=== PATIENT | male | born 1955 | race Caucasian/White ===

== ENCOUNTER 2022-09-10 11:18 | Outpatient (REF) | payer OTHER, SELFPAY ==
[2022-09-10 13:55] LABS: MANUAL DIFF FLAG NO
[2022-09-10 14:07] LABS: Basophils Percent Auto 0.5 % (0-2); Eosinophils Absolute Auto 0.2 X10*3/uL (0.0-0.4); Eosinophils Percent Auto 1.9 % (0-4); Hemoglobin 16.3 g/dl (14.0-18.0); Imm Gran Abs Auto 0.08 X10*3/uL (0.00-0.03); Imm Gran Pct Auto 0.9 % (0.0-0.4); Lymphocytes Absolute Auto 1.7 X10*3/uL (1.2-4.9); Lymphocytes Percent Auto 19.7 % (20-40); Mean Corpuscular Hemoglobin 27.7 pg (27.0-33.0); Mean Corpuscular Volume 81.5 fL (80.0-98.0); Mean Platelet Volume 9.7 fL (9.4-12.4); Monocytes Absolute Auto 0.6 X10*3/uL (0.1-1.2); Monocytes Percent Auto 7.4 % (2-11); Neutrophils Absolute Auto 5.9 x10*3/uL (2.0-8.3); Neutrophils Percent Auto 69.6 % (45-73); Platelet Count 235 X10*3/uL (160-400); Red Blood Count 5.89 X10*6/uL (4.60-5.80); Red Cell Distribution Width 12.9 % (11.0-16.0); White Blood Count 8.4 X10*3/uL (4.8-10.8)
[2022-09-10 14:10] LABS: Anion Gap 14 (12-20); Blood Urea Nitrogen 13 mg/dL (9-16); Calcium 9.7 mg/dL (8.4-10.2); Carbon Dioxide 26 mmol/L (22-29); Chloride 104 mmol/L (96-108); Estimated Glomerular Filt Rate > 60; Glucose Fasting 110 mg/dL (60-99); Potassium 4.3 mmol/L (3.3-5.1); Sodium 140 mmol/L (135-145)
== END 2022-09-10 11:19 | disposition home or self-care (01) ==
LOC: HO.HMGCLDS 11:18
PROVIDERS: Visit Provider Nurse Practitioner Family
DX: R42 Dizziness and giddiness (principal)
CPT/HCPCS: 36415; 80048; 85025

== ENCOUNTER 2022-12-03 08:29 | Outpatient (REF) | payer OTHER, SELFPAY ==
[2022-12-03 11:27] LABS: MANUAL DIFF FLAG NO
[2022-12-03 12:14] LABS: Basophils Absolute Auto 0.1 X10*3/uL (0.0-0.2); Basophils Percent Auto 0.7 % (0-2); Eosinophils Absolute Auto 0.4 X10*3/uL (0.0-0.4); Eosinophils Percent Auto 4.1 % (0-4); Hematocrit 47.4 % (42.0-52.0); Hemoglobin 16.3 g/dl (14.0-18.0); Imm Gran Abs Auto 0.05 X10*3/uL (0.00-0.03); Imm Gran Pct Auto 0.6 % (0.0-0.4); Lymphocytes Percent Auto 23.4 % (20-40); Mean Corpuscular HGB Conc 34.4 g/dl (31.0-36.0); Mean Corpuscular Hemoglobin 28.6 pg (27.0-33.0); Mean Corpuscular Volume 83.3 fL (80.0-98.0); Monocytes Absolute Auto 0.7 X10*3/uL (0.1-1.2); Monocytes Percent Auto 8.3 % (2-11); Neutrophils Absolute Auto 5.5 x10*3/uL (2.0-8.3); Neutrophils Percent Auto 62.9 % (45-73); Platelet Count 218 X10*3/uL (160-400); Red Blood Count 5.69 X10*6/uL (4.60-5.80); Red Cell Distribution Width 12.8 % (11.0-16.0); White Blood Count 8.7 X10*3/uL (4.8-10.8)
[2022-12-03 12:18] LABS: Alanine Aminotransferase 26 U/L (0-40); Albumin Level 4.5 g/dL (3.5-5.0); Alkaline Phosphatase 68 U/L (39-117); Anion Gap 12 (12-20); Aspartate Amino Transferase 20 U/L (5-37); Blood Urea Nitrogen 17 mg/dL (9-16); Calcium 9.5 mg/dL (8.4-10.2); Carbon Dioxide 25 mmol/L (22-29); Chloride 106 mmol/L (96-108); Estimated Glomerular Filt Rate > 60; Glucose Fasting 122 mg/dL (60-99); Sodium 139 mmol/L (135-145); Total Protein 7.5 g/dL (6.5-8.0)
[2022-12-03 12:29] LABS: Lipase 403 U/L (8-78)
[2022-12-03 12:36] LABS: TSH reflex Free T4 2.67 uIU/mL (0.32-4.0)
== END 2022-12-03 08:30 | disposition home or self-care (01) ==
LOC: HO.HMGCLDS 08:29
PROVIDERS: Visit Provider Internal Medicine
DX: Z00.01 Encounter for general adult medical examination with abnormal findings (principal); E66.09 Other obesity due to excess calories; K43.9 Ventral hernia without obstruction or gangrene; L28.2 Other prurigo; R03.0 Elevated blood-pressure reading, without diagnosis of hypertension
CPT/HCPCS: 36415; 80053; 83690; 84443; 85025

== ENCOUNTER 2022-12-15 13:43 | Outpatient (REF) | payer OTHER, SELFPAY ==
--- NOTE | ~2022-12-15 | US_ITS ---
EXAMINATION: US ABDOMEN COMPLETE CLINICAL INFORMATION: Abnormal levels of other serum enzymes. COMPARISON: None. TECHNIQUE: Real-time imaging of the abdominal viscera. FINDINGS: PANCREAS: Normal. ABDOMINAL AORTA: The proximal, mid, and distal segments are normal in caliber. INFERIOR VENA CAVA: Visualized portions are normal. LIVER: The liver is normal in size. The liver contour is normal. There is increased liver echogenicity. No focal hepatic lesion. There is no intrahepatic biliary duct dilatation seen. There is mild pericholecystic fluid collection. GALLBLADDER: The gallbladder is physiologically distended. Multiple mobile gallstones are present. No evidence of gallbladder wall thickening. COMMON BILE DUCT: Normal in caliber measuring 0.3 cm in diameter. RIGHT KIDNEY: Normal. No hydronephrosis. No renal calculi or focal parenchymal lesions. The kidney measures 10.2 cm in maximum dimension. LEFT KIDNEY: Normal. No hydronephrosis. No renal calculi or focal parenchymal lesions. The kidney measures 12.3 cm in maximum dimension. SPLEEN: Normal. The spleen measures 10.6 cm in maximum dimension. FREE FLUID: None. US/US abdomen complete IMPRESSION: 1. Cholelithiasis without wall thickening. There is mild pericholecystic fluid collection. 2. The rest of the abdominal ultrasound is unremarkable.
== END 2022-12-15 13:44 | disposition home or self-care (01) ==
LOC: HO.HMGCX 13:43
PROVIDERS: PCP Internal Medicine; Visit Provider Internal Medicine
DX: R74.8 Abnormal levels of other serum enzymes (principal)
CPT/HCPCS: 76700

== ENCOUNTER 2022-12-31 13:41 | Outpatient (REF) | payer MEDICARE, MEDICAID, SELFPAY ==
[2022-12-31 14:42] LABS: MANUAL DIFF FLAG NO
[2022-12-31 15:57] LABS: Basophils Absolute Auto 0.1 X10*3/uL (0.0-0.2); Basophils Percent Auto 0.6 % (0-2); Eosinophils Absolute Auto 0.2 X10*3/uL (0.0-0.4); Eosinophils Percent Auto 2.1 % (0-4); Hematocrit 46.1 % (42.0-52.0); Hemoglobin 15.9 g/dl (14.0-18.0); Imm Gran Abs Auto 0.03 X10*3/uL (0.00-0.03); Imm Gran Pct Auto 0.4 % (0.0-0.4); Lymphocytes Absolute Auto 1.8 X10*3/uL (1.2-4.9); Lymphocytes Percent Auto 20.9 % (20-40); Mean Corpuscular HGB Conc 34.5 g/dl (31.0-36.0); Mean Corpuscular Hemoglobin 28.5 pg (27.0-33.0); Mean Corpuscular Volume 82.6 fL (80.0-98.0); Mean Platelet Volume 9.7 fL (9.4-12.4); Monocytes Absolute Auto 0.7 X10*3/uL (0.1-1.2); Monocytes Percent Auto 7.6 % (2-11); Neutrophils Absolute Auto 5.8 x10*3/uL (2.0-8.3); Neutrophils Percent Auto 68.4 % (45-73); Platelet Count 216 X10*3/uL (160-400); Red Blood Count 5.58 X10*6/uL (4.60-5.80); Red Cell Distribution Width 12.8 % (11.0-16.0); White Blood Count 8.5 X10*3/uL (4.8-10.8)
[2022-12-31 16:07] LABS: Estimated Average Glucose 120 mg/dL; Hemoglobin A1c % 5.8 %
[2022-12-31 16:26] LABS: Alanine Aminotransferase 25 U/L (0-40); Albumin Level 4.7 g/dL (3.5-5.0); Alkaline Phosphatase 72 U/L (39-117); Amylase 140 U/L (28-100); Anion Gap 17 (12-20); Aspartate Amino Transferase 25 U/L (5-37); Bilirubin Total 0.9 mg/dL (0.0-1.0); Blood Urea Nitrogen 17 mg/dL (9-16); Calcium 9.5 mg/dL (8.4-10.2); Carbon Dioxide 25 mmol/L (22-29); Chloride 105 mmol/L (96-108); Estimated Glomerular Filt Rate > 60; Glucose Random 102 mg/dL (60-115); Lipase 85 U/L (8-78); Potassium 4.5 mmol/L (3.3-5.1); Sodium 142 mmol/L (135-145); Total Protein 7.5 g/dL (6.5-8.0)
== END 2022-12-31 13:42 | disposition home or self-care (01) ==
LOC: HO.LAB 13:41
PROVIDERS: PCP Internal Medicine; Visit Provider Surgery
DX: E66.09 Other obesity due to excess calories (principal); M62.08 Separation of muscle (nontraumatic), other site; R03.0 Elevated blood-pressure reading, without diagnosis of hypertension; R73.09 Other abnormal glucose; R74.8 Abnormal levels of other serum enzymes; K80.20 Calculus of gallbladder without cholecystitis without obstruction
CPT/HCPCS: 36415; 80053; 82150; 83036; 83690; 84134; 85025; 99202

== ENCOUNTER 2023-01-06 09:21 | Outpatient (REF) | payer MEDICARE, MEDICAID, SELFPAY ==
--- NOTE | ~2023-01-06 | CT_ITS ---
EXAMINATION: CT ABDOMEN AND PELVIS WITH CONTRAST CLINICAL INFORMATION: Abnormal levels of serum enzymes COMPARISON: Ultrasound abdomen complete 12/15/2022 TECHNIQUE: Multidetector volumetric images were obtained from the superior aspect of the liver through the pubic symphysis following administration 85 mL of Omnipaque 350 intravenous contrast. Sagittal and coronal reformatted images were obtained on the technologist's workstation. Oral contrast: No This CT examination was performed using dose optimization techniques as appropriate, variously including the following: *Automated exposure control *Adjustment of mA and/or kV according to patient size (this includes techniques or standardized protocols for targeted exams where dose is matched to indication/reason for exam; i.e. extremities or head) *Use of iterative reconstruction technique DLP: 413 mGy-cm FINDINGS: LUNG BASES: The visualized lung bases are unremarkable. LIVER, GALLBLADDER, AND BILIARY TREE: The liver is normal in size and shape. There is mild attenuation liver without focal attenuation along the ligament teres left hepatic lobe on axial image 17/3. No biliary ductal dilatation is present. There are gallstones without wall thickening or pericholecystic fluid collection. CBD is nondilated. PANCREAS: Unremarkable. SPLEEN: Unremarkable. ADRENAL GLANDS: Unremarkable. KIDNEYS AND URETERS: The kidneys are normal in size, shape, and attenuation. No hydronephrosis, hydroureter, or calculi seen. No perinephric stranding. BLADDER: Unremarkable. GASTROINTESTINAL TRACT: There is scattered stool and gas seen in the colon without distention. The small bowel loops are normal caliber. Appendix is not visualized. No free air or free fluid seen. There is no inflammatory process ABDOMINAL WALL: No significant hernia is appreciated. LYMPH NODES: Normal. VASCULAR: Unremarkable. PELVIC VISCERA: Unremarkable. OSSEOUS STRUCTURES: Mild degenerative disc changes with vacuum disc phenomena L5-S1 disc levels. There is mild ventral spondylosis lower lumbar spine. No aggressive lytic or sclerotic process seen. CT/CT abdomen pelvis w IV con IMPRESSION: 1. No acute intra-abdominal process seen. 2. Cholelithiasis without wall thickening. 3. Mild attenuation of liver similar to ultrasound findings. Fleischner guidelines were followed.
[2023-01-06] MEDS: iohexoL 350 MG/ML 100 ML INFUS..BTL 85 ML IV (11:40)
== END 2023-01-06 09:22 | disposition home or self-care (01) ==
LOC: HO.CT 09:21
PROVIDERS: PCP Internal Medicine; Visit Provider Surgery
DX: R74.8 Abnormal levels of other serum enzymes (principal)
CPT/HCPCS: 74177; Q9967

== ENCOUNTER 2023-01-13 12:47 | Outpatient (REF) | payer MEDICARE, MEDICAID, SELFPAY ==
[2023-01-13 15:31] LABS: Amylase 133 U/L (28-100); Lipase 77 U/L (8-78)
== END 2023-01-13 12:48 | disposition home or self-care (01) ==
LOC: HO.LAB 12:47
PROVIDERS: PCP Internal Medicine; Visit Provider Surgery
DX: K80.20 Calculus of gallbladder without cholecystitis without obstruction (principal); K85.90 Acute pancreatitis without necrosis or infection, unspecified; R74.8 Abnormal levels of other serum enzymes; M62.08 Separation of muscle (nontraumatic), other site; R03.0 Elevated blood-pressure reading, without diagnosis of hypertension; E66.09 Other obesity due to excess calories; I10 Essential (primary) hypertension; Z79.899 Other long term (current) drug therapy
CPT/HCPCS: 36415; 82150; 83690; 99212

== ENCOUNTER 2023-02-04 10:15 | Outpatient (REF) | payer MEDICARE, MEDICAID, SELFPAY ==
--- NOTE | ~2023-02-04 | MR_ITS ---
EXAMINATION: MR ABDOMEN WITHOUT CONTRAST CLINICAL INFORMATION: Cholelithiasis. Persistent elevation of amylase/lipase. No pain. COMPARISON: CT abdomen/pelvis 01/06/2023. TECHNIQUE: MR abdomen is performed without gadolinium contrast. 3-D MRCP images were obtained. FINDINGS: LUNG BASES: The visualized lung bases are unremarkable. LIVER, GALLBLADDER, AND BILIARY TREE: There is signal loss in the [id number] dual-echo images suggesting the presence of hepatic steatosis. The noncontrast liver is otherwise normal in size and shape without discrete focal lesion. Layering stones in the gallbladder neck. No evidence of gallbladder wall thickening. No evidence of associated pericholecystic fat stranding or free fluid. No biliary ductal dilatation. PANCREAS: Limited noncontrast examination, unremarkable. SPLEEN: Limited noncontrast examination, unremarkable. ADRENAL GLANDS: No adrenal nodule or mass. KIDNEYS AND URETERS: Limited noncontrast examination. No hydronephrosis. No focal lesion. No perinephric fat stranding. GASTROINTESTINAL TRACT: Included portions of the bowel are within normal limits. ABDOMINAL WALL: No significant hernia is appreciated. LYMPH NODES: No lymphadenopathy. VASCULAR: Limited noncontrast examination. Abdominal aorta is normal in caliber. OSSEOUS STRUCTURES: Marrow signal normal. MR/MR MRCP IMPRESSION: 1. Cholelithiasis without evidence of acute cholecystitis. 2. No significant peripancreatic free fluid or fat stranding. 3. Hepatic steatosis.
== END 2023-02-04 10:16 | disposition home or self-care (01) ==
LOC: HO.MRI 10:15
PROVIDERS: PCP Internal Medicine; Visit Provider Surgery
DX: K80.20 Calculus of gallbladder without cholecystitis without obstruction (principal); R74.8 Abnormal levels of other serum enzymes
CPT/HCPCS: 74181

== ENCOUNTER → 2023-02-13 11:18 | Outpatient (BNVA) | payer MEDICARE, MEDICAID, SELFPAY | PROVIDERS: PCP Internal Medicine; Visit Provider Surgery | DX: K85.90 Acute pancreatitis without necrosis or infection, unspecified (principal); K80.20 Calculus of gallbladder without cholecystitis without obstruction; K58.9 Irritable bowel syndrome, unspecified; K40.90 Unilateral inguinal hernia, without obstruction or gangrene, not specified as recurrent; I10 Essential (primary) hypertension; E66.09 Other obesity due to excess calories; Z68.29 Body mass index [BMI] 29.0-29.9, adult | CPT/HCPCS: 99212 ==

== ENCOUNTER → 2023-04-01 13:23 | Outpatient (BNVA) | payer MEDICARE, MEDICAID, SELFPAY | PROVIDERS: PCP Internal Medicine; Visit Provider Internal Medicine | DX: R74.8 Abnormal levels of other serum enzymes (principal) | CPT/HCPCS: 99202 ==

== ENCOUNTER → 2023-04-17 11:18 | Outpatient (BNVA) | payer MEDICARE, MEDICAID, SELFPAY | PROVIDERS: PCP Internal Medicine; Visit Provider Surgery | DX: K80.20 Calculus of gallbladder without cholecystitis without obstruction (principal); K85.90 Acute pancreatitis without necrosis or infection, unspecified; K58.9 Irritable bowel syndrome, unspecified; R74.8 Abnormal levels of other serum enzymes; I10 Essential (primary) hypertension | CPT/HCPCS: 99212 ==

== ENCOUNTER 2023-05-12 08:19 | Outpatient (AMB) | payer MEDICARE, MEDICAID, SELFPAY ==
[2023-05-12 08:25] VITALS: BP 148/80; PULSE 98; O2SAT 56; BMI 29.8
--- NOTE | 2023-05-12 08:25 | A.OFFPC_ITS ---
Vital Signs 05/12/23 08:25 Height 5 ft 5 in Weight 179 lb 4 oz BMI 29.8 BP 148/80 H Blood Pressure Location Rt brachial Position Sitting Pulse 98 Pulse Source Pulse Oximeter Pulse Oximetry (%) 56 L Oxygen Delivery Method Room Air Intake Visit Reasons: Blood Pressure Check ~ Allergies Penicillins [PENICILLINS] Allergy (Unknown, Verified 05/12/23 08:25) Hives Medication List - Last Reconciled 05/12/23 by More Laureano MD cetirizine (Zyrtec) 10 mg PO DAILY PRN hydrochlorothiazide 25 mg PO QAM 90 days Tobacco use date assessed: 05/12/23 Fall risk assessment: No Falls in past year Last assessed Fall Risk: 05/12/23 Dental Screening Dental Screen Date: 05/12/23 Did you have a dental visit in the last 12 months?: No Did you have a dental problem in the last 6 months where you did not have access to dental care?: No Was dental information given to patient?: No HPI Blood Pressure Check ~ HPI Details Patient is 67-year-old gentleman who was last seen January of this year and then did not come in for follow-up on his blood pressure He was started on hydrochlorothiazide 12.5 mg which was then increase to 25 mg. He came in today for blood pressure check he is also due for labs Blood pressure is 148/80 patient says that he had 4 cups of coffee before he came in Once in awhile he check his blood pressure at home and it runs around 130 systolic. I have advised patient to start monitoring blood pressure more frequently and bring the log along when he comes back for follow-up in 3 months Labs to be done today. [facility] Medical History Ventral hernia Surgical History H/O right inguinal hernia repair History of appendectomy [place] teeth extracted Social History Housing: House Patient Tobacco Use Status: Former Tobacco user e-Cigarette/Vaping Use: Never Used service: No Current occupational status: employed and retired Cognitive needs: No Hearing needs: No Vision needs: Yes Questionnaire Thrive Questionnaire Date Thrive assessed: 12/02/22 AUDIT C Alcohol Use Questionnaire (AUDIT-C) 1. How often do you have a drink containing alcohol?: Never 3. How often do you have six or more drinks on one occasion?: Never Total Score: 0 Score Reviewed/Action Taken: Yes MIRNA-7 AMB Questionnaire MIRNA-7 Date MIRNA - 7 assessed: 12/02/22 Source: Developed by Drs. Hank Jasmine, Alyson Choi, Tacho Bergman and colleagues, with an educational ebonie from [employer]. Review of Systems Const Denies chills and Denies fever(s) ENT Denies epistaxis and Denies nasal discharge Card Denies chest pain Resp Denies chest congestion, Denies cough and Denies hemoptysis GI Denies diarrhea and Denies nausea Skin/Breast Denies rash Neuro Reports no additional complaints Psych Reports no additional complaints Endo Reports no additional complaints Physical exam (Primary Care) Vital Signs: Last Vital Signs Pulse 98 05/12/23 08:25 BP 148/80 H 05/12/23 08:25 Pulse Ox 56 L 05/12/23 08:25 Oxygen Delivery Method Room Air 05/12/23 08:25 BMI result Body Mass Index 29.8 Tobacco/Smoking Status: Tobacco use Status Tobacco use date assessed 05/12/23 05/12/23 08:28 Patient Tobacco Use Status Former Tobacco user 05/12/23 08:28 e-Cigarette/Vaping Use Never Used 05/12/23 08:28 Thrive Assessment: Date of Thrive Assessment Date Thrive assessed 12/02/22 05/12/23 08:28 Const General: cooperative, comfortable and no acute distress Orientation/consciousness: patient oriented x3 HENRI Head: Yes normocephalic Eyes General: appearance normal, both eyes and all related structures Neck Neck: Yes supple Resp Effort & Inspection: normal respiratory effort, no cough and no stridor Cardio Rhythm: regular rhythm Heart sounds: S1 normal heart sound present and S2 normal heart sound present Skin General skin exam: turgor normal Neuro General: patient oriented x3, tone normal and moves all extremities Extrem Right lower extremity: no edema Left lower extremity: no edema Assessment and Plan Assessment & Plan (1) Hypertension, essential: Code(s): I10 - Essential (primary) hypertension Plan Patient is 67-year-old gentleman who was last seen January of this year and then did not come in for follow-up on his blood pressure He was started on hydrochlorothiazide 12.5 mg which was then increase to 25 mg. He came in today for blood pressure check he is also due for labs Blood pressure is 148/80 patient says that he had 4 cups of coffee before he came in Once in awhile he check his blood pressure at home and it runs around 130 systolic. I have advised patient to start monitoring blood pressure more frequently and bring the log along when he comes back for follow-up in 3 months Labs to be done today. Orders: Orders Basic Metabolic Panel Today I10 - Essential (primary) hypertension LDL Cholesterol Direct Today I10 - Essential (primary) hypertension Coding Level of Care Code Est Pt Level 3 (21753) Diagnoses Hypertension, essential I10
== END 2023-05-12 09:44 | disposition home or self-care (01) ==
PROVIDERS: PCP Internal Medicine; Visit Provider Internal Medicine
DX: I10 Essential (primary) hypertension (principal)
CPT/HCPCS: 99213

== ENCOUNTER 2023-05-12 08:39 | Outpatient (REF) | payer MEDICARE, MEDICAID, SELFPAY ==
[2023-05-12 12:33] LABS: Amylase 206 U/L (28-100); Anion Gap 11 (12-20); Blood Urea Nitrogen 13 mg/dL (9-16); Calcium 9.5 mg/dL (8.4-10.2); Carbon Dioxide 27 mmol/L (22-29); Chloride 104 mmol/L (96-108); Estimated Glomerular Filt Rate > 60; Glucose Random 122 mg/dL (60-115); Lipase 253 U/L (8-78); Potassium 3.5 mmol/L (3.3-5.1); Sodium 138 mmol/L (135-145)
[2023-05-13 21:08] LABS: LDL Cholesterol Direct 95 mg/dL (<100)
[2023-05-14 16:54] LABS: Immunoglobulin A 383 mg/dL (70-320)
[2023-05-14 20:09] LABS: Transglutaminase IgA <1.0 U/mL
== END 2023-05-12 08:40 | disposition home or self-care (01) ==
LOC: HO.HMGCLDS 08:39
PROVIDERS: Internal Medicine; PCP Internal Medicine; Visit Provider Internal Medicine
DX: K58.9 Irritable bowel syndrome, unspecified (principal); R74.8 Abnormal levels of other serum enzymes; I10 Essential (primary) hypertension
CPT/HCPCS: 36415; 80048; 82150; 82784; 83690; 83721; 86364

== ENCOUNTER 2023-05-25 08:04 | Outpatient (REF) | payer MEDICARE, MEDICAID, SELFPAY ==
--- NOTE | ~2023-05-25 | MR_ITS ---
EXAMINATION: MR ABDOMEN WITHOUT AND WITH CONTRAST CLINICAL INFORMATION: Follow up abnormal blood work, unspecified. Cholelithiasis. COMPARISON: MRCP 02/04/2023. CT abdomen/pelvis 01/06/2023. TECHNIQUE: MR abdomen was performed without and with use of 8 mL intravenous Gadavist gadolinium contrast. Postcontrast images are performed in multiphase dynamic sequences. Imaging was performed in 3 planes. 3-D MRCP images were obtained. FINDINGS: LUNG BASES: The visualized lung bases are unremarkable. LIVER, GALLBLADDER, AND BILIARY TREE: There is signal loss in the [id number] dual-echo images suggesting the presence of hepatic steatosis. Otherwise, the liver is normal in shape and signal without focal lesion. Redemonstration of cholelithiasis. No evidence of gallbladder wall thickening or pericholecystic fat stranding/free fluid. No biliary ductal dilatation. PANCREAS: Unremarkable. SPLEEN: Normal. ADRENAL GLANDS: Normal. KIDNEYS AND URETERS: The kidneys are normal in size, shape, and enhance symmetrically. No hydronephrosis. No perinephric stranding. GASTROINTESTINAL TRACT: No bowel obstruction. No ascites or fluid collection. ABDOMINAL WALL: No significant hernia is appreciated. LYMPH NODES: Stable periportal lymphadenopathy compared to 02/04/2023 and 01/06/2023. Scattered mildly prominent mesenteric lymph nodes are also unchanged. VASCULAR: Normal caliber abdominal aorta. Main portal vein and SMV are patent. OSSEOUS STRUCTURES: Degenerative changes of the spine. Stable mild endplate concavities/compression deformities at L4 and L5. MR/MR abdomen wo/w con IMPRESSION: 1. Cholelithiasis without evidence of acute cholecystitis or biliary ductal dilatation. 2. Hepatic steatosis. 3. Stable periportal lymphadenopathy.
== END 2023-05-25 08:05 | disposition home or self-care (01) ==
LOC: HO.MRI 08:04
PROVIDERS: PCP Internal Medicine; Visit Provider Internal Medicine
DX: K86.2 Cyst of pancreas (principal)
CPT/HCPCS: 74183; A9585

== ENCOUNTER 2023-06-09 11:20 | Outpatient (AMB) | payer MEDICARE, SELFPAY ==
--- NOTE | 2023-06-09 11:26 | MHC.OFFVIS ---
Intake Vital Signs 06/09/23 11:30 Height 5 ft 5 in Weight 175 lb 8 oz BMI 29.2 BP 191/84 H Blood Pressure Location Lt brachial Position Sitting Pulse 74 Intake Visit Reasons: MRI results, following cholelithiasis Intake Note: Patient is seen in office for MRCP results, following cholelithiasis. 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 He continues to note irritable bowel pain which she has had his entire life in his epigastrium. He continues to deny any pains comparable to pancreatitis or biliary colic. He does note that he was concerned about his diet and weight gain and has implemented dietary changes and is currently losing weight. Parenthetically, he notes less gas and irritable bowel symptoms since going on to a low-fat low-carbohydrate diet. The patient notes that he feels better since losing some weight and continues to deny any symptoms of pancreatitis or biliary colic. 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 He continues to note family stressors and that his mother's dementia has taken a turn for the worse and she is becoming aggressive and violent. He is working with his family to address this at this time and the noted that he is not having any abdominal complaints so he wants to table any ideas regarding surgery. I summarized the fact that the patient seems to have had a random lipase drawn due to epigastric complaints which was elevated at 400. At last visit, repeat labs showed elevated but normalizing amylase and lipase, a normal hemoglobin A1c at 5.8 and no other significant lab abnormalities including liver function tests. We reviewed 05/12/2023 amylase and lipase which are both elevated at around just over 200. Patient reports his hypertension medication was increased and that he needs a follow-up in the next month with his PCP because his blood pressure has been exceptionally labile. [facility] Medical History Ventral hernia Surgical History H/O right inguinal hernia repair History of appendectomy [place] teeth extracted Social History Housing: House Patient Tobacco Use Status: Former Tobacco user e-Cigarette/Vaping Use: Never Used service: No Current occupational status: employed and retired Cognitive needs: No Hearing needs: No Vision needs: Yes Review of Systems Const All systems reviewed & are unremarkable except as noted in HPI and below Reports as per HPI Physical Exam On exam, the patient is anicteric He is in no acute respiratory distress His abdomen is soft & NT. No discomfort is noted. He has no rebound, rigidity, guarding or discomfort Results Reviewed Results Reviewed: Labs from 01/13/2023 show his amylase down to 77, however his his amylase elevated at 140 MRCP from 02/04/2023 shows non alcoholic fatty liver disease but no evidence of choledocholithiasis, previously acknowledged cholelithiasis is noted MRCP 05/25/23 continues to show fatty liver, gallstones but no evidence of choledocholithiasis CT of the abdomen and pelvis from 01/06/2023 images and report are reviewed. Calcified gallstones are noted but there is no intrahepatic ductal dilation or evidence of pancreatic mass. Labs dated 12/31/2022 A persistent elevation of his lipase down from 403 to 85 is noted and the patient's amylase is still elevated at 140. White blood cell count is normal at 8.5 with a normal differential; hemoglobin is normal at 15.9 with normal indices; platelet count 216 K BUN 17, creatinine 0.95 Hemoglobin A1c 5.8 LFTs are all normal Labs 05/12/23 Amylase is again elevated at 206, lipase elevated at 253 Abdominal ultrasound dated 12/15/22 is reviewed which showed cholelithiasis and some fluid around the pancreatic head Patient's blood glucose is mildly elevated Patient's lipase was elevated at 403 White blood cell count was normal 8.7, hemoglobin 16.3, platelet count 218 K Assessment & Plan Assessment & Plan (1) Elevated pancreatic enzyme: Code(s): R74.8 - Abnormal levels of other serum enzymes (2) Cholelithiasis: Code(s): K80.20 - Calculus of gallbladder without cholecystitis without obstruction (3) Pancreatitis: Code(s): K85.90 - Acute pancreatitis without necrosis or infection, unspecified (4) Hypertension, essential: Code(s): I10 - Essential (primary) hypertension (5) Irritable bowel syndrome: Code(s): K58.9 - Irritable bowel syndrome without diarrhea (6) Elevated lipase: Code(s): R74.8 - Abnormal levels of other serum enzymes Plan Using a teaching slitter cut off operator, I again reviewed that the patient is most likely spitting gallstones or sludge in having low-grade episodes of pancreatitis. We did discuss the potential issue of severe pancreatitis that could require hospitalization or even ICU stay. I again recommended a laparoscopic cholecystectomy that could possibly be open but the patient noted that he is not interested in surgery and also notes that his aunt has had digestive issues which she explained is chronic diarrhea that is felt to be secondary to her cholecystectomy. We discussed dietary modification to minimize this risk and I also explained that his aunt could have other reasons for diarrhea like microscopic colitis at her age but regardless the patient does not want to proceed with surgery at this time. The importance of following up with me later this year after he sees GI, Dr. Hicks was apparently understood. The potential for malignancy was discussed and apparently understood. The patient noted that his blood pressure remains labile and he has a follow-up with his PCP to address this as well as ongoing issues with his mother. The patient is free to contact if he changes his mind or if he starts having symptoms and wants to schedule surgery I am happy to see him back. Patient stated he will likely call for a follow-up later in the year but could not schedule 1 at this time. Coding Level of Care Code Est Pt Level 4 (47613) Diagnoses Elevated pancreatic enzyme R74.8 Cholelithiasis K80.20 Pancreatitis K85.90 Hypertension, essential I10 Irritable bowel syndrome K58.9 Elevated lipase R74.8
[2023-06-09 11:30] VITALS: BP 191/84; PULSE 74; BMI 29.2
== END 2023-06-09 11:57 | disposition home or self-care (01) ==
PROVIDERS: PCP Internal Medicine; Visit Provider Surgery
DX: R74.8 Abnormal levels of other serum enzymes (principal); K80.20 Calculus of gallbladder without cholecystitis without obstruction; K85.90 Acute pancreatitis without necrosis or infection, unspecified; I10 Essential (primary) hypertension; K58.9 Irritable bowel syndrome, unspecified
CPT/HCPCS: 99214

== ENCOUNTER → 2023-06-09 11:20 | Outpatient (BNVA) | payer MEDICARE, SELFPAY | PROVIDERS: PCP Internal Medicine; Visit Provider Surgery | DX: K80.20 Calculus of gallbladder without cholecystitis without obstruction (principal); K85.90 Acute pancreatitis without necrosis or infection, unspecified; K58.9 Irritable bowel syndrome, unspecified; R74.8 Abnormal levels of other serum enzymes; I10 Essential (primary) hypertension | CPT/HCPCS: 99212 ==

== ENCOUNTER 2023-08-14 11:22 | Outpatient (AMB) | payer MEDICARE, SELFPAY ==
[2023-08-14 11:23] VITALS: BP 160/74; PULSE 76; O2SAT 98; BMI 29.1
--- NOTE | 2023-08-14 11:23 | MHC.PC.OV ---
Vital Signs 08/14/23 11:23 Height 5 ft 5 in Weight 175 lb BMI 29.1 BP 160/74 H Blood Pressure Location Rt brachial Position Sitting Pulse 76 Pulse Source Pulse Oximeter Pulse Oximetry (%) 98 Oxygen Delivery Method Room Air Intake Visit Reasons: 3 Month follow up on BP Allergies Penicillins [PENICILLINS] Allergy (Unknown, Verified 08/14/23 11:24) Hives Medication List - Last Reconciled 08/14/23 by More Laureano MD cetirizine (Zyrtec) 10 mg PO DAILY PRN hydrochlorothiazide 25 mg PO QAM 90 days Tobacco use date assessed: 08/14/23 Fall risk assessment: No Falls in past year Last assessed Fall Risk: 08/14/23 Dental Screening Dental Screen Date: 08/14/23 Did you have a dental visit in the last 12 months?: No Did you have a dental problem in the last 6 months where you did not have access to dental care?: No Was dental information given to patient?: Patient has dentist HPI 3 Month follow up on BP HPI Details Blood pressure is still elevated I am changing his medication to losartan hydrochlorothiazide 50-12.5 mg Patient is to start taking that instead of hydrochlorothiazide Continue monitoring blood pressure at home He did bring in blood pressure log from home and his readings are ranging anywhere from 150 systolic to 130 systolic He has no headache no dizziness no blurring of vision no chest pain no shortness of breath There is no nausea vomiting diarrhea or abdominal pain He had labs done recently which showed that his amylase lipase are going up again Patient have gallstones he has already been evaluated by surgery and he decided not to pursue the cholecystectomy. Patient says that he feels fine he has no symptoms he would like to wait. We will repeat labs again in 3 months with a follow-up visit Patient was also told to bring his blood pressure monitor along. Patient did see Dr. Hicks [facility] in March of this year And had MRI of abdomen done which showed the gallstones, fatty liver and periportal lymph nodes which were stable [facility] Medical History Ventral hernia Surgical History [place] teeth extracted History of appendectomy H/O right inguinal hernia repair Social History Housing: House Patient Tobacco Use Status: Former Tobacco user e-Cigarette/Vaping Use: Never Used service: No Current occupational status: employed and retired Cognitive needs: No Hearing needs: No Vision needs: Yes Questionnaire PHQ-9 Over the last 2 weeks, how often have you been bothered by any of the following problems? 1. Little interest or pleasure in doing things: not at all 2. Feeling down, depressed, or hopeless: not at all 3. Trouble falling or staying asleep, or sleeping too much: not at all 4. Feeling tired or having little energy: not at all 5. Poor appetite or overeating: not at all 6. Feeling bad about yourself - or that you are a failure or have let yourself or your family down: not at all 7. Trouble concentrating on things, such as reading the newspaper or watching television: not at all 8. Moving or speaking so slowly that other people could have noticed. Or the opposite - being so fidgety or restless that you have been moving around a lot more than usual: not at all 9. Thoughts that you would be better off or of hurting yourself in some way: not at all Total score: 0 Depression Screening Interpretation: Negative Depression Screening Done: Yes 96739 - PHQ-9 Billing: Yes Source: Developed by Drs. Hank Jasmine, Tacho Rosas and colleagues, with an educational ebonie from [employer]. Thrive Questionnaire Date Thrive assessed: 12/02/22 MIRNA-7 AMB Questionnaire MIRNA-7 Date MIRNA - 7 assessed: 12/02/22 Source: Developed by Drs. Hank Jasmine, Tacho Rosas and colleagues, with an educational ebonie from [employer]. Review of Systems Const Denies chills and Denies fever(s) ENT Denies epistaxis and Denies nasal discharge Card Denies chest pain Resp Denies chest congestion, Denies cough and Denies hemoptysis GI Denies diarrhea and Denies nausea Skin/Breast Denies rash Neuro Reports no additional complaints Psych Reports no additional complaints Endo Reports no additional complaints Physical exam (Primary Care) Vital Signs: Last Vital Signs Pulse 76 08/14/23 11:23 BP 160/74 H 08/14/23 11:23 Pulse Ox 98 08/14/23 11:23 Oxygen Delivery Method Room Air 08/14/23 11:23 BMI result Body Mass Index 29.1 Tobacco/Smoking Status: Tobacco use Status Tobacco use date assessed 08/14/23 08/14/23 11:25 Patient Tobacco Use Status Former Tobacco user 08/14/23 11:25 e-Cigarette/Vaping Use Never Used 08/14/23 11:25 PHQ-9: PHQ-9 Score PHQ-9: Total score 0 08/14/23 11:50 Depression Screening Interpretation: Negative Thrive Assessment: Date of Thrive Assessment Date Thrive assessed 12/02/22 08/14/23 11:25 Const General: cooperative, comfortable and no acute distress Orientation/consciousness: patient oriented x3 HENMT Head: Yes normocephalic Eyes General: appearance normal, both eyes and all related structures Neck Neck: Yes supple Resp Effort & Inspection: normal respiratory effort, no cough and no stridor Cardio Rhythm: regular rhythm Heart sounds: S1 normal heart sound present and S2 normal heart sound present Skin General skin exam: turgor normal Neuro General: patient oriented x3, tone normal and moves all extremities Extrem Right lower extremity: no edema Left lower extremity: no edema Assessment and Plan Assessment & Plan (1) Uncontrolled hypertension: Code(s): I10 - Essential (primary) hypertension (2) Elevated pancreatic enzyme: Code(s): R74.8 - Abnormal levels of other serum enzymes (3) Cholelithiasis: Code(s): K80.20 - Calculus of gallbladder without cholecystitis without obstruction Qualifiers: Biliary obstruction: without biliary obstruction Cholecystitis presence: without cholecystitis Cholelithiasis location: gallbladder Qualified Code(s): K80.20 - Calculus of gallbladder without cholecystitis without obstruction (4) Elevated lipase: Code(s): R74.8 - Abnormal levels of other serum enzymes Plan Blood pressure is still elevated I am changing his medication to losartan hydrochlorothiazide 50-12.5 mg Patient is to start taking that instead of hydrochlorothiazide Continue monitoring blood pressure at home He did bring in blood pressure log from home and his readings are ranging anywhere from 150 systolic to 130 systolic He has no headache no dizziness no blurring of vision no chest pain no shortness of breath There is no nausea vomiting diarrhea or abdominal pain He had labs done recently which showed that his amylase lipase are going up again Patient have gallstones he has already been evaluated by surgery and he decided not to pursue the cholecystectomy. Patient says that he feels fine he has no symptoms he would like to wait. We will repeat labs again in 3 months with a follow-up visit Patient was also told to bring his blood pressure monitor along. Patient did see Dr. Hicks Gastroenterology in March of this year And had MRI of abdomen done which showed the gallstones, fatty liver and periportal lymph nodes which were stable Orders: Orders Comprehensive Met. Panel Today I10 - Essential (primary) hypertension, K80.20 - Calculus of gallbladder without cholecystitis without obstruction, R74.8 - Abnormal levels of other serum enzymes Lipase Today I10 - Essential (primary) hypertension, K80.20 - Calculus of gallbladder without cholecystitis without obstruction, R74.8 - Abnormal levels of other serum enzymes Complete Blood Count Auto Diff Today I10 - Essential (primary) hypertension, K80.20 - Calculus of gallbladder without cholecystitis without obstruction, R74.8 - Abnormal levels of other serum enzymes Amylase Today I10 - Essential (primary) hypertension, K80.20 - Calculus of gallbladder without cholecystitis without obstruction, R74.8 - Abnormal levels of other serum enzymes Medications: New losartan-hydrochlorothiazide 50-12.5 mg 1 tab PO DAILY 90 tabs 0RF Coding Level of Care Code Est Pt Level 4 (15542) Diagnoses Uncontrolled hypertension I10 Elevated pancreatic enzyme R74.8 Calculus of gallbladder without cholecystitis without obstruction K80.20 Biliary obstruction: without biliary obstruction Cholecystitis presence: without cholecystitis Cholelithiasis location: gallbladder Elevated lipase R74.8
== END 2023-08-14 12:31 | disposition home or self-care (01) ==
PROVIDERS: PCP Internal Medicine; Visit Provider Internal Medicine
DX: I10 Essential (primary) hypertension (principal); R74.8 Abnormal levels of other serum enzymes; K80.20 Calculus of gallbladder without cholecystitis without obstruction
CPT/HCPCS: 99214

== ENCOUNTER 2023-11-11 14:26 | Outpatient (AMB) | payer MEDICARE, SELFPAY ==
[2023-11-11 14:28] VITALS: BP 168/66; PULSE 77; O2SAT 98; BMI 29.7
--- NOTE | 2023-11-11 14:28 | A.OFFPC_ITS ---
Vital Signs 11/11/23 14:28 Height 5 ft 5 in Weight 178 lb 8 oz BMI 29.7 BP 168/66 H Blood Pressure Location Rt brachial Position Sitting Pulse 77 Pulse Source Pulse Oximeter Pulse Oximetry (%) 98 Oxygen Delivery Method Room Air Intake Visit Reasons: BP Check with cuff Allergies Penicillins [PENICILLINS] Allergy (Unknown, Verified 11/11/23 14:28) Hives Medication List - Last Reconciled 11/11/23 by More Laureano MD azithromycin 250 mg PO DIRECTED cetirizine (Zyrtec) 10 mg PO DAILY PRN hydrochlorothiazide 25 mg PO QAM 90 days losartan-hydrochlorothiazide 50-12.5 mg 1 tab PO DAILY Tobacco use date assessed: 11/11/23 Fall risk assessment: No Falls in past year Last assessed Fall Risk: 11/11/23 Dental Screening Dental Screen Date: 11/11/23 Did you have a dental visit in the last 12 months?: Yes Did you have a dental problem in the last 6 months where you did not have access to dental care?: No Was dental information given to patient?: Patient has dentist HPI BP Check with cuff HPI Details Patient is 67-year-old gentleman came in today to be evaluated for hypertension He is currently taking losartan 50-hydrochlorothiazide 25 mg his blood pressure is still 168/66 Patient is monitoring it at home and he brought in his blood pressure log, most of his readings are in 140s and upper 130s I am increasing the dose to b.i.d. He is to continue monitoring blood pressure He is also due for labs Patient have physical exam appointment next month [facility] Medical History Ventral hernia Surgical History [place] teeth extracted History of appendectomy H/O right inguinal hernia repair Social History Housing: House Patient Tobacco Use Status: Former Tobacco user e-Cigarette/Vaping Use: Never Used service: No Current occupational status: employed and retired Cognitive needs: No Hearing needs: No Vision needs: Yes Questionnaire Thrive Questionnaire Date Thrive assessed: 12/02/22 AUDIT C Alcohol Use Questionnaire (AUDIT-C) 1. How often do you have a drink containing alcohol?: Never 3. How often do you have six or more drinks on one occasion?: Never Total Score: 0 Score Reviewed/Action Taken: Yes MIRNA-7 AMB Questionnaire MIRNA-7 Date MIRNA - 7 assessed: 12/02/22 Source: Developed by Drs. Hank Jasmine, Alyson Choi, Tacho Bergman and colleagues, with an educational ebonie from [employer]. Review of Systems Const Denies chills and Denies fever(s) ENT Denies epistaxis and Denies nasal discharge Card Denies chest pain Resp Denies chest congestion, Denies cough and Denies hemoptysis GI Denies diarrhea and Denies nausea Skin/Breast Denies rash Neuro Reports no additional complaints Psych Reports no additional complaints Endo Reports no additional complaints Physical exam (Primary Care) Vital Signs: Last Vital Signs Pulse 77 11/11/23 14:28 BP 168/66 H 11/11/23 14:28 Pulse Ox 98 11/11/23 14:28 Oxygen Delivery Method Room Air 11/11/23 14:28 BMI result Body Mass Index 29.7 Tobacco/Smoking Status: Tobacco use Status Tobacco use date assessed 11/11/23 11/11/23 14:30 Patient Tobacco Use Status Former Tobacco user 11/11/23 14:30 e-Cigarette/Vaping Use Never Used 11/11/23 14:30 Thrive Assessment: Date of Thrive Assessment Date Thrive assessed 12/02/22 11/11/23 14:30 Const General: cooperative, comfortable and no acute distress Orientation/consciousness: patient oriented x3 HENMT Head: Yes normocephalic Eyes General: appearance normal, both eyes and all related structures Neck Neck: Yes supple Resp Effort & Inspection: normal respiratory effort, no cough and no stridor Cardio Rhythm: regular rhythm Heart sounds: S1 normal heart sound present and S2 normal heart sound present Skin General skin exam: turgor normal Neuro General: patient oriented x3, tone normal and moves all extremities Extrem Right lower extremity: no edema Left lower extremity: no edema Assessment and Plan Assessment & Plan (1) Uncontrolled hypertension: Code(s): I10 - Essential (primary) hypertension Plan Patient is 67-year-old gentleman came in today to be evaluated for hypertension He is currently taking losartan 50-hydrochlorothiazide 25 mg his blood pressure is still 168/66 Patient is monitoring it at home and he brought in his blood pressure log, most of his readings are in 140s and upper 130s I am increasing the dose to b.i.d. He is to continue monitoring blood pressure He is also due for labs Patient have physical exam appointment next month Medications: Changed From losartan-hydrochlorothiazide 50-12.5 mg 1 tab PO DAILY 90 tabs 0RF To losartan-hydrochlorothiazide 50-12.5 mg 1 tab PO BID 90 days 180 tabs 0RF Discontinued hydrochlorothiazide Discontinued Reason: Doctor's Order 25 mg PO QAM 90 days 90 tabs 0RF Coding Level of Care Code Est Pt Level 3 (77702) Diagnoses Uncontrolled hypertension I10
== END 2023-11-11 14:46 | disposition home or self-care (01) ==
PROVIDERS: PCP Internal Medicine; Visit Provider Internal Medicine
DX: I10 Essential (primary) hypertension (principal)
CPT/HCPCS: 99213

== ENCOUNTER 2023-12-04 10:49 | Outpatient (AMB) | payer MEDICARE, SELFPAY ==
[2023-12-04 10:58] VITALS: BP 148/60; PULSE 76; O2SAT 97; BMI 30.2
--- NOTE | 2023-12-04 10:58 | A.OFFPC_ITS ---
Vital Signs 3 12/04/23 10:58 Height 5 ft 5 in Weight 181 lb 8 oz BMI 30.2 BP 148/60 H Blood Pressure Location Rt brachial Position Sitting Pulse 76 Pulse Source Pulse Oximeter Pulse Oximetry (%) 97 Oxygen Delivery Method Room Air Intake Visit Reasons: Annual PE Allergies Penicillins [PENICILLINS] Allergy (Unknown, Verified 11/11/23 14:28) Hives Medication List - Last Reviewed 12/04/23 by Patricio Ness MA cetirizine (Zyrtec) 10 mg PO DAILY PRN losartan-hydrochlorothiazide 50-12.5 mg 1 tab PO BID 90 days Tobacco use date assessed: 12/04/23 Fall risk assessment: No Falls in past year Last assessed Fall Risk: 12/04/23 Dental Screening Dental Screen Date: 12/04/23 Did you have a dental visit in the last 12 months?: Yes Did you have a dental problem in the last 6 months where you did not have access to dental care?: No Was dental information given to patient?: Patient has dentist HPI Annual PE 2 HPI0 Details Patient is 67-year-old gentleman came in today for his physical examination Patient have a history elevated lipase and amylase we will be repeating that He had consultation by Gastroenterology already and workup was done His blood pressure is 148/60, patient is currently taking losartan hydrochlorothiazide 50-12.5 mg b.i.d. He is monitoring his blood pressure at home and it is running around 130s and 120 systolic Patient had Cologuard test December of last year which was negative BMI is elevated to lose weight Follow-up 6 months [facility] Medical History (Updated 12/04/23 @ 12:09 by More Laureano MD) Ventral hernia Surgical History [place] teeth extracted History of appendectomy H/O right inguinal hernia repair Social History Housing: House Patient Tobacco Use Status: Former Tobacco user e-Cigarette/Vaping Use: Never Used service: No Current occupational status: employed and retired Cognitive needs: No Hearing needs: No Vision needs: Yes Questionnaire Thrive Questionnaire Date Thrive assessed: 12/02/22 AUDIT C Alcohol Use Questionnaire (AUDIT-C) 1. How often do you have a drink containing alcohol?: Never 3. How often do you have six or more drinks on one occasion?: Never Total Score: 0 Score Reviewed/Action Taken: Yes MIRNA-7 AMB Questionnaire MIRNA-7 Date MIRNA - 7 assessed: 12/02/22 Source: Developed by Drs. Hank Jasmine, Alyson Choi, Tacho Bergman and colleagues, with an educational ebonie from [employer]. Review of Systems Const Denies chills, Denies fever(s) and Denies headache(s) Eyes Denies blurry vision ENT Denies headache(s), Denies nasal discharge, Denies nasal obstruction, Denies odynophagia and Denies sinus pain Card Denies chest pain at rest and Denies chest pain with activity Resp Denies cough and Denies hemoptysis GI Denies diarrhea, Denies odynophagia, Denies vomiting and Denies hematemesis Reports as per HPI Musc Denies abnormal gait Skin/Breast Reports as per HPI Neuro Denies Neuro-related abnormal movements, Denies Abnormal speech present, Denies abnormal gait, Denies headache(s) and Denies Sensory deficit (Neuro) Psych Denies mood swings and Denies paranoia Endo Reports as per HPI Lai/Lymph Reports as per HPI Aller/Immun Reports as per HPI Physical exam (Primary Care) Vital Signs: Last Vital Signs Pulse 76 12/04/23 10:58 BP 148/60 H 12/04/23 10:58 Pulse Ox 97 12/04/23 10:58 Oxygen Delivery Method Room Air 12/04/23 10:58 BMI result Body Mass Index 30.2 Tobacco/Smoking Status: Tobacco use Status Tobacco use date assessed 12/04/23 12/04/23 11:02 Patient Tobacco Use Status Former Tobacco user 12/04/23 11:00 e-Cigarette/Vaping Use Never Used 12/04/23 11:00 Thrive Assessment: Date of Thrive Assessment Date Thrive assessed 12/02/22 12/04/23 11:00 Const General: cooperative, comfortable and no acute distress Orientation/consciousness: patient oriented x3 HENMT Head: Yes normocephalic and Yes atraumatic Eyes General: appearance normal, both eyes and all related structures Pupils: Equal, round and reactive pupils present EOM: EOMs intact bilaterally Neck Neck: Yes supple and No lymphadenopathy Thyroid: Thyroid normal Lymphatic: no lymphadenopathy noted Resp Effort & Inspection: normal respiratory effort and able to speak in complete sentences Auscultation: clear to auscultation bilaterally Cardio Heart sounds: S1 normal heart sound present and S2 normal heart sound present GI Palpation (GI): Soft to palpation and nontender Auscultation: normal bowel sounds Abdomen image: 2 1. Small ventral hernia present General: Yes no CVA tenderness Back/Spine/Pelvis Back: no CVA tenderness Skin General skin exam: elasticity normal and turgor normal Neuro General: patient oriented x3 and gait normal Cranial nerves: Yes Equal, round and reactive pupils present Speech: No Abnormal speech present Sensory Exam: No Sensory deficit (Neuro) Coordination: tandem gait normal and Romberg test negative Extrem General: Yes normal exam except as noted and No edema Assessment and Plan Assessment & Plan (1) Encounter for general adult medical examination with abnormal findings: Code(s): Z00.01 - Encounter for general adult medical examination with abnormal findings (2) Obesity due to excess calories: Code(s): E66.09 - Other obesity due to excess calories Qualifiers: Obesity classification: adult class 1 (BMI 30 - 34.9) Serious obesity comorbidity presence: with serious comorbidity Body mass index: BMI 30.0-30.9 Qualified Code(s): E66.09 - Other obesity due to excess calories; Z68.30 - Body mass index [BMI] 30.0-30.9, adult (3) Elevated lipase: Code(s): R74.8 - Abnormal levels of other serum enzymes (4) Hypertension, essential: Code(s): I10 - Essential (primary) hypertension (5) Irritable bowel syndrome: Code(s): K58.9 - Irritable bowel syndrome without diarrhea Qualifiers: Irritable bowel syndrome type: other Qualified Code(s): K58.8 - Other irritable bowel syndrome (6) Elevated pancreatic enzyme: Code(s): R74.8 - Abnormal levels of other serum enzymes (7) Ventral hernia: Code(s): K43.9 - Ventral hernia without obstruction or gangrene Qualifiers: Obstruction and gangrene presence: without obstruction or gangrene Qualified Code(s): K43.9 - Ventral hernia without obstruction or gangrene Plan Patient is 67-year-old gentleman came in today for his physical examination Patient have a history elevated lipase and amylase we will be repeating that He had consultation by Gastroenterology already and workup was done His blood pressure is 148/60, patient is currently taking losartan hydrochlorothiazide 50-12.5 mg b.i.d. He is monitoring his blood pressure at home and it is running around 130s and 120 systolic Patient had Cologuard test December of last year which was negative BMI is elevated to lose weight Follow-up 6 months Orders: Orders 2 Comprehensive Met. Panel Today E66.09 - Other obesity due to excess calories, I10 - Essential (primary) hypertension, K58.9 - Irritable bowel syndrome without diarrhea, R74.8 - Abnormal levels of other serum enzymes, Z00.01 - Encounter for general adult medical examination with abnormal findings LDL Cholesterol Direct Today E66.09 - Other obesity due to excess calories, I10 - Essential (primary) hypertension, K58.9 - Irritable bowel syndrome without diarrhea, R74.8 - Abnormal levels of other serum enzymes, Z00.01 - Encounter for general adult medical examination with abnormal findings Complete Blood Count Auto Diff Today E66.09 - Other obesity due to excess calories, I10 - Essential (primary) hypertension, K58.9 - Irritable bowel syndrome without diarrhea, R74.8 - Abnormal levels of other serum enzymes, Z00.01 - Encounter for general adult medical examination with abnormal findings Lipase Today E66.09 - Other obesity due to excess calories, I10 - Essential (primary) hypertension, K58.9 - Irritable bowel syndrome without diarrhea, R74.8 - Abnormal levels of other serum enzymes, Z00.01 - Encounter for general adult medical examination with abnormal findings Amylase Today E66.09 - Other obesity due to excess calories, I10 - Essential (primary) hypertension, K58.9 - Irritable bowel syndrome without diarrhea, R74.8 - Abnormal levels of other serum enzymes, Z00.01 - Encounter for general adult medical examination with abnormal findings Coding Level of Care Code Est Pt Prev Care >65y(30609) Diagnoses Encounter for general adult medical examination with abnormal findings Z00.01 Class 1 obesity due to excess calories with serious comorbidity and body mass index (BMI) of 30.0 to 30.9 in adult E66.09; Z68.30 Obesity classification: adult class 1 (BMI 30 - 34.9) Serious obesity comorbidity presence: with serious comorbidity Body mass index: BMI 30.0-30.9 Elevated lipase R74.8 Hypertension, essential I10 Other irritable bowel syndrome K58.8 Irritable bowel syndrome type: other Elevated pancreatic enzyme R74.8 Ventral hernia without obstruction or gangrene K43.9 Obstruction and gangrene presence: without obstruction or gangrene
== END 2023-12-04 11:23 | disposition home or self-care (01) ==
PROVIDERS: PCP Internal Medicine; Visit Provider Internal Medicine
DX: Z00.00 Encounter for general adult medical examination without abnormal findings (principal); E66.09 Other obesity due to excess calories; Z68.30 Body mass index [BMI] 30.0-30.9, adult; R74.8 Abnormal levels of other serum enzymes; I10 Essential (primary) hypertension; K58.8 Other irritable bowel syndrome; K43.9 Ventral hernia without obstruction or gangrene
CPT/HCPCS: 99397

== ENCOUNTER 2023-12-04 11:23 | Outpatient (REF) | payer MEDICARE, SELFPAY ==
[2023-12-04 13:16] LABS: MANUAL DIFF FLAG NO
[2023-12-04 13:28] LABS: Basophils Absolute Auto 0.1 X10*3/uL (0.0-0.2); Basophils Percent Auto 0.9 % (0-2); Eosinophils Absolute Auto 0.3 X10*3/uL (0.0-0.4); Eosinophils Percent Auto 3.4 % (0-4); Hematocrit 45.5 % (42.0-52.0); Hemoglobin 16.6 g/dl (14.0-18.0); Imm Gran Abs Auto 0.03 X10*3/uL (0.00-0.03); Imm Gran Pct Auto 0.4 % (0.0-0.4); Lymphocytes Percent Auto 25.7 % (20-40); Mean Corpuscular HGB Conc 36.5 g/dl (31.0-36.0); Mean Corpuscular Hemoglobin 29.8 pg (27.0-33.0); Mean Corpuscular Volume 81.7 fL (80.0-98.0); Mean Platelet Volume 9.3 fL (9.4-12.4); Monocytes Absolute Auto 0.7 X10*3/uL (0.1-1.2); Monocytes Percent Auto 8.7 % (2-11); Neutrophils Absolute Auto 4.6 x10*3/uL (2.0-8.3); Neutrophils Percent Auto 60.9 % (45-73); Platelet Count 213 X10*3/uL (160-400); Red Blood Count 5.57 X10*6/uL (4.60-5.80); Red Cell Distribution Width 12.5 % (11.0-16.0); White Blood Count 7.6 X10*3/uL (4.8-10.8)
[2023-12-04 13:29] LABS: Alanine Aminotransferase 17 U/L (0-40); Albumin Level 4.5 g/dL (3.5-5.0); Alkaline Phosphatase 70 U/L (39-117); Amylase 227 U/L (28-100); Anion Gap 10 (12-20); Aspartate Amino Transferase 21 U/L (5-37); Bilirubin Total 0.7 mg/dL (0.0-1.0); Blood Urea Nitrogen 14 mg/dL (9-16); Calcium 9.9 mg/dL (8.4-10.2); Carbon Dioxide 30 mmol/L (22-29); Chloride 103 mmol/L (96-108); Estimated Glomerular Filt Rate > 60; Glucose Random 107 mg/dL (60-115); Lipase 231 U/L (8-78); Potassium 3.8 mmol/L (3.3-5.1); Sodium 139 mmol/L (135-145); Total Protein 8.1 g/dL (6.5-8.0)
[2023-12-05 12:23] LABS: LDL Cholesterol Direct 101 mg/dL (<100)
== END 2023-12-04 11:24 | disposition home or self-care (01) ==
LOC: HO.HMGCLDS 11:23
PROVIDERS: PCP Internal Medicine; Visit Provider Internal Medicine
DX: Z00.01 Encounter for general adult medical examination with abnormal findings (principal); E66.09 Other obesity due to excess calories; R74.8 Abnormal levels of other serum enzymes; I10 Essential (primary) hypertension; K58.9 Irritable bowel syndrome, unspecified
CPT/HCPCS: 36415; 80053; 82150; 83690; 83721; 85025

== ENCOUNTER 2024-06-10 09:09 | Outpatient (AMB) | payer MEDICARE, SELFPAY ==
--- NOTE | 2024-06-10 09:11 | A.OFFPC_ITS ---
Vital Signs 06/10/24 09:12 Height 5 ft 5 in Weight 180 lb 5 oz BMI 30.0 BP 146/68 H Blood Pressure Location Rt brachial Position Sitting Pulse 73 Pulse Source Pulse Oximeter Pulse Oximetry (%) 99 Oxygen Delivery Method Room Air Intake Visit Reasons: 6 month follow Allergies Penicillins [PENICILLINS] Allergy (Unknown, Verified 06/10/24 09:16) Hives Medication List - Last Reconciled 06/10/24 by More Laureano MD cetirizine (Zyrtec) 10 mg PO DAILY PRN losartan-hydrochlorothiazide 50-12.5 mg 1 tab PO BID 90 days Tobacco use date assessed: 06/10/24 Fall risk assessment: No Falls in past year Last assessed Fall Risk: 06/10/24 Dental Screening Dental Screen Date: 06/10/24 Did you have a dental visit in the last 12 months?: Yes Did you have a dental problem in the last 6 months where you did not have access to dental care?: No Was dental information given to patient?: Patient has dentist HPI 6 month follow HPI Details Patient is 68-year-old gentleman came in today for his six-month follow-up appointment Patient have a history of elevated lipase and amylase , we are monitoring the levels He had consultation by Gastroenterology already and workup was done His blood pressure is elevated again, patient is currently taking losartan hydrochlorothiazide 50-12.5 mg b.i.d. At home also it is running in upper 130s, I am adding atenolol 25 mg Patient is to give me a call in a week with blood pressure readings and to update me on how he is feeling with new medication Patient had Cologuard test December of last year which was negative BMI is elevated to lose weight Due for labs, order placed to be done today Order for next set of lab also placed Follow-up 6 months [facility] Medical History Ventral hernia Surgical History [place] teeth extracted History of appendectomy H/O right inguinal hernia repair Social History Housing: House Patient Tobacco Use Status: Former Tobacco user e-Cigarette/Vaping Use: Never Used service: No Current occupational status: employed and retired Cognitive needs: No Hearing needs: No Vision needs: Yes Questionnaire PHQ-9 Over the last 2 weeks, how often have you been bothered by any of the following problems? 1. Little interest or pleasure in doing things: not at all 2. Feeling down, depressed, or hopeless: not at all 3. Trouble falling or staying asleep, or sleeping too much: not at all 4. Feeling tired or having little energy: not at all 5. Poor appetite or overeating: not at all 6. Feeling bad about yourself - or that you are a failure or have let yourself or your family down: not at all 7. Trouble concentrating on things, such as reading the newspaper or watching television: not at all 8. Moving or speaking so slowly that other people could have noticed. Or the opposite - being so fidgety or restless that you have been moving around a lot more than usual: not at all 9. Thoughts that you would be better off or of hurting yourself in some way: not at all Total score: 0 Depression Screening Interpretation: Negative Depression Screening Done: Yes 13986 - PHQ-9 Billing: Yes Source: Developed by Drs. Hank Jasmine, Alyson Choi, Tacho Bergman and colleagues, with an educational ebonie from [employer]. Thrive Questionnaire Date Thrive assessed: 06/10/24 I am a: Patient What is your living situation today?: I have a steady place to live Within the past 12 months, did the food you bought not last and you didn't have the money to get more?: Never true Within the past 12 months, did you worry whether your food would run out before you got money to buy more?: Never true Do you have trouble paying for medicines?: No Do you have trouble getting transportation to medical appointments?: No Do you have trouble paying your heating and electricity bill?: No Do you have trouble taking care of your child, family member or friend?: No Do you have trouble with day-to-day activities such as bathing, preparing meals, shopping, managing finances, etc.?: No Are you currently unemployed and looking for a job?: No Are you interested in more education?: No Please select the resources that you would like help with: None Currently or been in a relationship where the following occur: No concerns reported THRIVE Score: 0 AUDIT C Alcohol Use Questionnaire (AUDIT-C) 1. How often do you have a drink containing alcohol?: Monthly or less 2. How many drinks containing alcohol do you have on a typical day when you are drinking?: 1 or 2 3. How often do you have six or more drinks on one occasion?: Never Total Score: 1 Score Reviewed/Action Taken: Yes MIRNA-7 AMB Questionnaire MIRNA-7 Date MIRNA - 7 assessed: 06/10/24 Feeling nervous, anxious, or on edge: 0 = Not at all Not being able to stop or control worryin = Not at all Worrying too much about different things: 0 = Not at all Trouble relaxin = Not at all Being so restless that it is hard to sit still: 0 = Not at all Becoming easily annoyed or irritable: 0 = Not at all Feeling afraid as if something awful might happen: 0 = Not at all Total MIRNA-7 score (0-4 normal; 5-9 mild; 10-14 moderate; 15-21 severe): 0 Source: Developed by Drs. Hank Jasmine, Alyson Choi, Tacho Bergman and colleagues, with an educational ebonie from [employer]. MIRNA-7 Assessment Billing MIRNA-7 Assessment Tool: MIRNA-7 Assessment 29192 Review of Systems Const Denies chills and Denies fever(s) ENT Denies epistaxis and Denies nasal discharge Card Denies chest pain Resp Denies chest congestion, Denies cough and Denies hemoptysis GI Denies diarrhea and Denies nausea Skin/Breast Denies rash Neuro Reports no additional complaints Psych Reports no additional complaints Endo Reports no additional complaints Physical exam (Primary Care) Vital Signs: Last Vital Signs Pulse 73 06/10/24 09:12 BP 146/68 H 06/10/24 09:12 Pulse Ox 99 06/10/24 09:12 Oxygen Delivery Method Room Air 06/10/24 09:12 BMI result Body Mass Index 30.0 Tobacco/Smoking Status: Tobacco use Status Tobacco use date assessed 06/10/24 06/10/24 09:17 Patient Tobacco Use Status Former Tobacco user 06/10/24 09:12 e-Cigarette/Vaping Use Never Used 06/10/24 09:12 PHQ-9: PHQ-9 Score PHQ-9: Total score 0 06/10/24 09:27 Depression Screening Interpretation: Negative Thrive Assessment: Date of Thrive Assessment Date Thrive assessed 06/10/24 06/10/24 09:17 Currently or been in a relationship where the following occur: No concerns reported Const General: cooperative, comfortable and no acute distress Orientation/consciousness: patient oriented x3 HENMT Head: Yes normocephalic Eyes General: appearance normal, both eyes and all related structures Neck Neck: Yes supple Resp Effort & Inspection: normal respiratory effort, no cough and no stridor Cardio Rhythm: regular rhythm Heart sounds: S1 normal heart sound present and S2 normal heart sound present Skin General skin exam: turgor normal Neuro General: patient oriented x3, tone normal and moves all extremities Extrem Right lower extremity: no edema Left lower extremity: no edema Assessment and Plan Assessment & Plan (1) Hypertension, essential: Code(s): I10 - Essential (primary) hypertension (2) Elevated pancreatic enzyme: Code(s): R74.8 - Abnormal levels of other serum enzymes (3) Obesity due to excess calories: Code(s): E66.09 - Other obesity due to excess calories Qualifiers: Body mass index: BMI 30.0-30.9 Obesity classification: adult class 1 (BMI 30 - 34.9) Serious obesity comorbidity presence: with serious comorbidity Qualified Code(s): E66.09 - Other obesity due to excess calories; Z68.30 - Body mass index [BMI] 30.0-30.9, adult (4) Elevated lipase: Code(s): R74.8 - Abnormal levels of other serum enzymes (5) Irritable bowel syndrome: Code(s): K58.9 - Irritable bowel syndrome without diarrhea Qualifiers: Irritable bowel syndrome type: other Qualified Code(s): K58.8 - Other irritable bowel syndrome (6) Ventral hernia: Code(s): K43.9 - Ventral hernia without obstruction or gangrene Qualifiers: Obstruction and gangrene presence: without obstruction or gangrene Qualified Code(s): K43.9 - Ventral hernia without obstruction or gangrene Plan Patient is 68-year-old gentleman came in today for his six-month follow-up appointment Patient have a history of elevated lipase and amylase , we are monitoring the levels He had consultation by Gastroenterology already and workup was done His blood pressure is elevated again, patient is currently taking losartan hydrochlorothiazide 50-12.5 mg b.i.d. At home also it is running in upper 130s, I am adding atenolol 25 mg Patient is to give me a call in a week with blood pressure readings and to update me on how he is feeling with new medication Patient had Cologuard test December of last year which was negative BMI is elevated to lose weight Due for labs, order placed to be done today Order for next set of lab also placed Follow-up 6 months Orders: Orders Amylase Today E66.09 - Other obesity due to excess calories, I10 - Essential (primary) hypertension, R74.8 - Abnormal levels of other serum enzymes, Z68.30 - Body mass index [BMI] 30.0-30.9, adult Complete Blood Count Auto Diff 6 Months E66.09 - Other obesity due to excess calories, I10 - Essential (primary) hypertension, Z68.30 - Body mass index [BMI] 30.0-30.9, adult Comprehensive [place]. Panel Fast 6 Months E66.09 - Other obesity due to excess calories, I10 - Essential (primary) hypertension, Z68.30 - Body mass index [BMI] 30.0-30.9, adult Lipase 6 Months E66.09 - Other obesity due to excess calories, I10 - Essential (primary) hypertension, K58.8 - Other irritable bowel syndrome, R74.8 - Abnormal levels of other serum enzymes, Z68.30 - Body mass index [BMI] 30.0-30.9, adult Lipid Panel 6 Months E66.09 - Other obesity due to excess calories, I10 - Essential (primary) hypertension, K58.8 - Other irritable bowel syndrome, R74.8 - Abnormal levels of other serum enzymes, Z68.30 - Body mass index [BMI] 30.0- 30.9, adult Complete Blood Count Auto Diff Today E66.09 - Other obesity due to excess calories, I10 - Essential (primary) hypertension, R74.8 - Abnormal levels of other serum enzymes, Z68.30 - Body mass index [BMI] 30.0-30.9, adult Comprehensive Met. Panel Today E66.09 - Other obesity due to excess calories, I10 - Essential (primary) hypertension, R74.8 - Abnormal levels of other serum enzymes, Z68.30 - Body mass index [BMI] 30.0-30.9, adult Lipase Today E66.09 - Other obesity due to excess calories, I10 - Essential (primary) hypertension, R74.8 - Abnormal levels of other serum enzymes, Z68.30 - Body mass index [BMI] 30.0-30.9, adult Amylase 6 Months E66.09 - Other obesity due to excess calories, I10 - Essential (primary) hypertension, K58.8 - Other irritable bowel syndrome, R74.8 - Abnormal levels of other serum enzymes, Z68.30 - Body mass index [BMI] 30.0- 30.9, adult Medications: New atenolol 25 mg PO DAILY 90 tabs 0RF Coding Level of Care Code Est Pt Level 3 (16310) Complex EM visit Add On G2211 Diagnoses Hypertension, essential I10 Elevated pancreatic enzyme R74.8 Class 1 obesity due to excess calories with serious comorbidity and body mass index (BMI) of 30.0 to 30.9 in adult E66.09; Z68.30 Body mass index: BMI 30.0-30.9 Obesity classification: adult class 1 (BMI 30 - 34.9) Serious obesity comorbidity presence: with serious comorbidity Elevated lipase R74.8 Other irritable bowel syndrome K58.8 Irritable bowel syndrome type: other Ventral hernia without obstruction or gangrene K43.9 Obstruction and gangrene presence: without obstruction or gangrene Additional Codes MIRNA-7 Assessment Billing - MIRNA-7 Assessment Tool: MIRNA-7 Assessment [id number] ([id number])
[2024-06-10 09:12] VITALS: BP 146/68; PULSE 73; O2SAT 99
== END 2024-06-10 09:52 | disposition home or self-care (01) ==
PROVIDERS: PCP Internal Medicine; Visit Provider Internal Medicine
DX: I10 Essential (primary) hypertension (principal); R74.8 Abnormal levels of other serum enzymes; E66.09 Other obesity due to excess calories; Z68.30 Body mass index [BMI] 30.0-30.9, adult; K58.8 Other irritable bowel syndrome; K43.9 Ventral hernia without obstruction or gangrene
CPT/HCPCS: 99213; G2211

== ENCOUNTER 2024-06-10 09:25 | Outpatient (REF) | payer MEDICARE, SELFPAY ==
[2024-06-10 13:09] LABS: MANUAL DIFF FLAG NO
[2024-06-10 13:39] LABS: Basophils Absolute Auto 0.1 X10*3/uL (0.0-0.2); Basophils Percent Auto 0.8 % (0-2); Eosinophils Absolute Auto 0.4 X10*3/uL (0.0-0.4); Hematocrit 43.9 % (42.0-52.0); Hemoglobin 15.9 g/dl (14.0-18.0); Imm Gran Abs Auto 0.04 X10*3/uL (0.00-0.03); Imm Gran Pct Auto 0.5 % (0.0-0.4); Lymphocytes Percent Auto 24.8 % (20-40); Mean Corpuscular HGB Conc 36.2 g/dl (31.0-36.0); Mean Corpuscular Hemoglobin 29.4 pg (27.0-33.0); Mean Corpuscular Volume 81.3 fL (80.0-98.0); Mean Platelet Volume 9.3 fL (9.4-12.4); Monocytes Absolute Auto 0.8 X10*3/uL (0.1-1.2); Neutrophils Absolute Auto 4.7 x10*3/uL (2.0-8.3); Neutrophils Percent Auto 58.9 % (45-73); Platelet Count 234 X10*3/uL (160-400); Red Cell Distribution Width 12.5 % (11.0-16.0)
[2024-06-10 14:01] LABS: Alanine Aminotransferase 18 U/L (0-40); Albumin Level 4.5 g/dL (3.5-5.0); Alkaline Phosphatase 63 U/L (39-117); Amylase 181 U/L (28-100); Anion Gap 12 (12-20); Aspartate Amino Transferase 20 U/L (5-37); Bilirubin Total 0.8 mg/dL (0.0-1.0); Blood Urea Nitrogen 18 mg/dL (9-16); Calcium 9.8 mg/dL (8.4-10.2); Carbon Dioxide 28 mmol/L (22-29); Chloride 102 mmol/L (96-108); Estimated Glomerular Filt Rate > 60; Glucose Random 102 mg/dL (60-115); Lipase 145 U/L (8-78); Potassium 3.2 mmol/L (3.3-5.1); Sodium 139 mmol/L (135-145); Total Protein 8.3 g/dL (6.5-8.0)
== END 2024-06-10 09:26 | disposition home or self-care (01) ==
LOC: HO.HMGCLDS 09:25
PROVIDERS: PCP Internal Medicine; Visit Provider Internal Medicine
DX: I10 Essential (primary) hypertension (principal); R74.8 Abnormal levels of other serum enzymes; E66.09 Other obesity due to excess calories; Z68.30 Body mass index [BMI] 30.0-30.9, adult
CPT/HCPCS: 36415; 80053; 82150; 83690; 85025

== ENCOUNTER 2024-12-13 11:20 | Outpatient (AMB) | payer MEDICARE, SELFPAY ==
[2024-12-13 11:23] VITALS: BP 140/68; PULSE 64; RESP 17; TEMP 36.6; O2SAT 99; BMI 30.3
--- NOTE | 2024-12-13 11:23 | MHC.PC.OV ---
Vital Signs 12/13/24 11:23 Height 5 ft 5 in Weight 182 lb 2 oz BMI 30.3 BP 140/68 H Blood Pressure Location Rt brachial Position Sitting Respiration 17 Pulse 64 Pulse Source Pulse Oximeter Temp 98 F Temp Source Oral Pulse Oximetry (%) 99 Oxygen Delivery Method Room Air Intake Visit Reasons: Annual PE Allergies Penicillins [PENICILLINS] Allergy (Unknown, Verified 12/13/24 11:23) Hives Medication List - Last Reconciled 12/13/24 by More Laureano MD atenolol 25 mg PO DAILY cetirizine (Zyrtec) 10 mg PO DAILY PRN losartan-hydrochlorothiazide 50-12.5 mg 1 tab PO BID 90 days Tobacco use date assessed: 12/13/24 Fall risk assessment: No Falls in past year Last assessed Fall Risk: 12/13/24 Dental Screening Dental Screen Date: 12/13/24 Did you have a dental visit in the last 12 months?: Yes Did you have a dental problem in the last 6 months where you did not have access to dental care?: No Was dental information given to patient?: Patient has dentist HPI Annual PE HPI Details Patient is 68-year-old gentleman came in today for physical examination Patient had Cologuard test December of 2022 which was negative Continued to have elevated amylase lipase, due for labs Patient does have cholelithiasis but have no symptoms he has been evaluated by a surgeon and at this time we are just monitoring it He has MRI abdomen done in 2022, report reviewed again Blood pressure is elevated Patient is taking atenolol 25 mg and losartan hydrochlorothiazide 50-12.5 mg b.i.d. We rechecked blood pressure after 15 minutes and it is 140 systolic Patient says that he is monitoring it at home and it runs around 120-128 systolic He will bring his blood pressure monitor and blood pressure log at his next visit in 3 months Allergies are stable with cetirizine BMI is elevated patient is having difficulty losing weight Review of Systems - General: No fever no chills - Neurological: No headaches no dizziness - Ear nose throat: No sore throat no hearing difficulty no ear pain - Cardiovascular: No syncope, no chest pain, no palpitations - Gastrointestinal: No nausea vomiting or diarrhea - Endocrine: No polyuria polydipsia no heat intolerance - Genitourinary: No dysuria - Skin: No new complaints Physical Exam General: Cooperative, healthy appearing, comfortable, no acute distress Orientation: Patient oriented x3 Limitations: None Head: Normal to inspection Ears: Within normal limit visually Nose: Normal external nose present Face and sinus: Normal facial exam Eyes: Appearance normal, extraocular movement intact pupils reactive Neck: Normal visual inspection and supple, slightly enlarged neck nodes Respiratory: Normal respiratory effort and able to speak in complete sentences. Clear to auscultation, no stridor Cardiovascular: S1 and S2 GI: Normal to inspection. Soft to palpation and nontender Skin: Turgor normal, no acute findings, benign mole on face since childhood Neuro: Patient oriented x3, motor sensory intact, balance intact, tandem pass Extremities: Normal to inspection REPLACED BY [facility] Medical History Ventral hernia Surgical History [place] teeth extracted History of appendectomy H/O right inguinal hernia repair Social History Housing: House Patient Tobacco Use Status: Former Tobacco user e-Cigarette/Vaping Use: Never Used service: No Current occupational status: employed and retired Cognitive needs: No Hearing needs: No Vision needs: Yes Questionnaire PHQ-9 Over the last 2 weeks, how often have you been bothered by any of the following problems? 1. Little interest or pleasure in doing things: not at all 2. Feeling down, depressed, or hopeless: not at all 3. Trouble falling or staying asleep, or sleeping too much: not at all 4. Feeling tired or having little energy: not at all 5. Poor appetite or overeating: not at all 6. Feeling bad about yourself - or that you are a failure or have let yourself or your family down: not at all 7. Trouble concentrating on things, such as reading the newspaper or watching television: not at all 8. Moving or speaking so slowly that other people could have noticed. Or the opposite - being so fidgety or restless that you have been moving around a lot more than usual: not at all 9. Thoughts that you would be better off or of hurting yourself in some way: not at all Total score: 0 Depression Screening Interpretation: Negative Depression Screening Done: Yes 98692 - PHQ-9 Billing: Yes Source: Developed by Drs. Hank Jasmine, Alyson Choi, Tacho Bergman and colleagues, with an educational ebonie from [employer]. Thrive Questionnaire Date Thrive assessed: 12/07/24 I am a: Patient What is your living situation today?: I have a steady place to live Within the past 12 months, did the food you bought not last and you didn't have the money to get more?: Never true Within the past 12 months, did you worry whether your food would run out before you got money to buy more?: Never true Do you have trouble paying for medicines?: No Do you have trouble getting transportation to medical appointments?: No Do you have trouble paying your heating and electricity bill?: No Do you have trouble taking care of your child, family member or friend?: No Do you have trouble with day-to-day activities such as bathing, preparing meals, shopping, managing finances, etc.?: No Are you currently unemployed and looking for a job?: No Are you interested in more education?: No Please select the resources that you would like help with: None Currently or been in a relationship where the following occur: No concerns reported THRIVE Score: 0 AUDIT C Alcohol Use Questionnaire (AUDIT-C) 1. How often do you have a drink containing alcohol?: Monthly or less 2. How many drinks containing alcohol do you have on a typical day when you are drinking?: 1 or 2 3. How often do you have six or more drinks on one occasion?: Never Total Score: 1 Score Reviewed/Action Taken: Yes MIRNA-7 AMB Questionnaire MIRNA-7 Date MIRNA - 7 assessed: 12/13/24 Feeling nervous, anxious, or on edge: 0 = Not at all Not being able to stop or control worryin = Not at all Worrying too much about different things: 0 = Not at all Trouble relaxin = Not at all Being so restless that it is hard to sit still: 0 = Not at all Becoming easily annoyed or irritable: 0 = Not at all Feeling afraid as if something awful might happen: 0 = Not at all Total MIRNA-7 score (0-4 normal; 5-9 mild; 10-14 moderate; 15-21 severe): 0 Source: Developed by Drs. Hank Jasmine, Alyson Choi, Tacho Bergman and colleagues, with an educational ebonie from [employer]. MIRNA-7 Assessment Billing MIRNA-7 Assessment Tool: MIRNA-7 Assessment 73506 Physical exam (Primary Care) Vital Signs: Last Vital Signs Temp 98 F 12/13/24 11:23 Pulse 64 12/13/24 11:23 Resp 17 12/13/24 11:23 BP 144/80 H 12/13/24 11:23 Pulse Ox 99 12/13/24 11:23 Oxygen Delivery Method Room Air 12/13/24 11:23 BMI result Body Mass Index 30.3 Tobacco/Smoking Status: Tobacco use Status Tobacco use date assessed 12/13/24 12/13/24 11:29 Patient Tobacco Use Status Former Tobacco user 12/13/24 11:29 e-Cigarette/Vaping Use Never Used 12/13/24 11:29 PHQ-9: PHQ-9 Score PHQ-9: Total score 0 12/13/24 11:36 Depression Screening Interpretation: Negative Thrive Assessment: Date of Thrive Assessment Date Thrive assessed 12/07/24 12/13/24 11:29 Currently or been in a relationship where the following occur: No concerns reported Coding Level of Care Code Est Pt Level 3 (16308) Est Pt Prev Care >65y(78543) Diagnoses Encounter for general adult medical examination with abnormal findings Z00.01 Hypertension, essential I10 Elevated pancreatic enzyme R74.8 Calculus of gallbladder without cholecystitis without obstruction K80.20 Cholelithiasis location: gallbladder Cholecystitis presence: without cholecystitis Biliary obstruction: without biliary obstruction Class 1 obesity due to excess calories with serious comorbidity and body mass index (BMI) of 30.0 to 30.9 in adult E66.09; Z68.30 Obesity classification: adult class 1 (BMI 30 - 34.9) Serious obesity comorbidity presence: with serious comorbidity Body mass index: BMI 30.0-30.9 Additional Codes MIRNA-7 Assessment Billing - MIRNA-7 Assessment Tool: MIRNA-7 Assessment 40566 ([id number]) PHQ-9 - 70161 - PHQ-9 Billing: Yes ([id number]) Assessment & Plan Assessment & Plan (1) Encounter for general adult medical examination with abnormal findings: Code(s): Z00.01 - Encounter for general adult medical examination with abnormal findings Category: Medical (2) Hypertension, essential: Code(s): I10 - Essential (primary) hypertension Category: Medical (3) Elevated pancreatic enzyme: Code(s): R74.8 - Abnormal levels of other serum enzymes Category: Medical (4) Cholelithiasis: Code(s): K80.20 - Calculus of gallbladder without cholecystitis without obstruction Category: Medical Qualifiers: Cholelithiasis location: gallbladder Cholecystitis presence: without cholecystitis Biliary obstruction: without biliary obstruction Qualified Code(s): K80.20 - Calculus of gallbladder without cholecystitis without obstruction (5) Obesity due to excess calories: Code(s): E66.09 - Other obesity due to excess calories Category: Medical Qualifiers: Obesity classification: adult class 1 (BMI 30 - 34.9) Serious obesity comorbidity presence: with serious comorbidity Body mass index: BMI 30.0-30.9 Qualified Code(s): E66.09 - Other obesity due to excess calories; Z68.30 - Body mass index [BMI] 30.0-30.9, adult Plan Patient is 68-year-old gentleman came in today for physical examination Patient had Cologuard test December of 2022 which was negative Continued to have elevated amylase lipase, due for labs Patient does have cholelithiasis but have no symptoms he has been evaluated by a surgeon and at this time we are just monitoring it He has MRI abdomen done in 2022, report reviewed again Blood pressure is elevated Patient is taking atenolol 25 mg and losartan hydrochlorothiazide 50-12.5 mg b.i.d. We rechecked blood pressure after 15 minutes and it is 140 systolic Patient says that he is monitoring it at home and it runs around 120-128 systolic He will bring his blood pressure monitor and blood pressure log at his next visit in 3 months Allergies are stable with cetirizine BMI is elevated patient is having difficulty losing weight Three-month follow-up 1 year physical exam
== END 2024-12-13 12:32 | disposition home or self-care (01) ==
PROVIDERS: PCP Internal Medicine; Visit Provider Internal Medicine
DX: Z00.01 Encounter for general adult medical examination with abnormal findings (principal); I10 Essential (primary) hypertension; R74.8 Abnormal levels of other serum enzymes; K80.20 Calculus of gallbladder without cholecystitis without obstruction; E66.09 Other obesity due to excess calories; Z68.30 Body mass index [BMI] 30.0-30.9, adult

== ENCOUNTER → 2024-12-13 11:20 | Outpatient (BNVA) | payer MEDICARE, SELFPAY | PROVIDERS: PCP Internal Medicine; Visit Provider Internal Medicine | DX: Z00.01 Encounter for general adult medical examination with abnormal findings (principal); I10 Essential (primary) hypertension; R74.8 Abnormal levels of other serum enzymes; K80.20 Calculus of gallbladder without cholecystitis without obstruction; E66.09 Other obesity due to excess calories; Z68.30 Body mass index [BMI] 30.0-30.9, adult; Z71.3 Dietary counseling and surveillance | CPT/HCPCS: 96127; 99212; 99397 ==

== ENCOUNTER 2024-12-15 08:21 | Outpatient (REF) | payer MEDICARE, SELFPAY ==
[2024-12-15 10:14] LABS: MANUAL DIFF FLAG NO
[2024-12-15 10:21] LABS: Basophils Percent Auto 0.5 % (0-2); Eosinophils Absolute Auto 0.4 X10*3/uL (0.0-0.4); Hematocrit 42.6 % (42.0-52.0); Hemoglobin 15.4 g/dl (14.0-18.0); Imm Gran Abs Auto 0.03 X10*3/uL (0.00-0.03); Imm Gran Pct Auto 0.4 % (0.0-0.4); Lymphocytes Percent Auto 27.4 % (20-40); Mean Corpuscular HGB Conc 36.2 g/dl (31.0-36.0); Mean Corpuscular Hemoglobin 29.6 pg (27.0-33.0); Mean Corpuscular Volume 81.8 fL (80.0-98.0); Mean Platelet Volume 9.3 fL (9.4-12.4); Monocytes Absolute Auto 0.7 X10*3/uL (0.1-1.2); Neutrophils Absolute Auto 4.2 x10*3/uL (2.0-8.3); Neutrophils Percent Auto 57.7 % (45-73); Platelet Count 216 X10*3/uL (160-400); Red Blood Count 5.21 X10*6/uL (4.60-5.80); Red Cell Distribution Width 12.8 % (11.0-16.0); White Blood Count 7.3 X10*3/uL (4.8-10.8)
[2024-12-15 10:57] LABS: Alanine Aminotransferase 25 U/L (0-40); Albumin Level 4.4 g/dL (3.5-5.0); Alkaline Phosphatase 56 U/L (39-117); Amylase 235 U/L (28-100); Anion Gap 13 (12-20); Aspartate Amino Transferase 29 U/L (5-37); Bilirubin Total 0.7 mg/dL (0.0-1.0); Blood Urea Nitrogen 20 mg/dL (9-16); Calcium 9.7 mg/dL (8.4-10.2); Carbon Dioxide 27 mmol/L (22-29); Chloride 105 mmol/L (96-108); Cholesterol 160 mg/dL (<200); Estimated Glomerular Filt Rate > 60; Glucose Fasting 111 mg/dL (60-99); HDL Cholesterol 35 mg/dL (>40); LDL Cholesterol Calculated 83 mg/dL (<100); Lipase 297 U/L (8-78); Potassium 3.8 mmol/L (3.3-5.1); Sodium 141 mmol/L (135-145); Total Protein 8.2 g/dL (6.5-8.0); Triglycerides 211 mg/dL (<150)
== END 2024-12-15 08:22 | disposition home or self-care (01) ==
LOC: HO.HMGCLDS 08:21
PROVIDERS: PCP Internal Medicine; Visit Provider Internal Medicine
DX: E66.09 Other obesity due to excess calories (principal); Z68.30 Body mass index [BMI] 30.0-30.9, adult; I10 Essential (primary) hypertension; R74.8 Abnormal levels of other serum enzymes; K58.8 Other irritable bowel syndrome
CPT/HCPCS: 36415; 80053; 80061; 82150; 83690; 85025

== ENCOUNTER 2025-03-28 13:17 | Outpatient (AMB) | payer MEDICARE, SELFPAY ==
--- NOTE | 2025-03-28 13:19 | A.OFFPC_ITS ---
Vital Signs 03/28/25 13:22 Height 5 ft 5 in Weight 178 lb 6 oz BMI 29.7 BP 138/68 Blood Pressure Location Rt brachial Position Sitting Respiration 14 Pulse 56 Pulse Source Pulse Oximeter Temp 97.6 F Temp Source Oral Pulse Oximetry (%) 99 Oxygen Delivery Method Room Air Intake Visit Reasons: F/U HTN, resched Bone Char Puller Required: No Allergies Penicillins [PENICILLINS] Allergy (Unknown, Verified 03/28/25 13:22) Hives Medication List - Last Reconciled 03/28/25 by More Laureano MD atenolol 25 mg PO DAILY cetirizine (Zyrtec) 10 mg PO DAILY PRN losartan-hydrochlorothiazide 50-12.5 mg 1 tab PO BID 90 days Tobacco use date assessed: 03/28/25 Fall risk assessment: No Falls in past year Last assessed Fall Risk: 03/28/25 Dental Screening Dental Screen Date: 03/28/25 Did you have a dental visit in the last 12 months?: No Did you have a dental problem in the last 6 months where you did not have access to dental care?: No Was dental information given to patient?: Patient has dentist HPI F/U HTN, resched HPI Details History - The patient is a 69-year-old male pres enting with issues of blood pressure monitoring and management of anxiety. - He suspects that the device's batteri es may be low as a reading this morning was 128 (systolic over indeterminate) and another of 126 mmHg. He is monitoring blood pressure at home he brought his machine today but that did not give us accurate number - History of anxiety with the patient de scribing feelings of being anxious and nervous, stating it may be familial, tracing back to his mother. - He noted that he requires medication f or relaxation because he has felt consistently anxious. Medical History: - hypertension - History of anxiety issues. - Prediabetes has been identified in pat ient labs. - chronic pancreatitis asymptomatic Diagnostic Results: - Labs: Done in November of this year r wendy Problem List - Essential Hypertension - Anxiety Disorder - Prediabetes - chronic pancreatitis - overweight Patient Instructions - Monitor blood pressure regularly and c heck the batteries of the device. - Start with a half tablet of prescribed anxiety medication for a week, then transition to a full tablet every morning. Lexapro 10 mg - Follow up in three weeks to assess the effectiveness of the anxiety medication. - Schedule next appointment in [facility] and ensure a blood test is completed before this appointment. Review of Systems - General: No fever no chills - Neurological: No headaches no dizziness - Ear nose throat: No sore throat no hearing difficulty no ear pain - Cardiovascular: No syncope, no chest pain, no palpitations - Gastrointestinal: No nausea vomiting or diarrhea - Endocrine: No polyuria polydipsia no heat intolerance - Genitourinary: No dysuria , no blood in urine Physical Exam General: No acute distress HEENT: No acute findings Neck: Supple Respiratory system: Able to talk in full sentences, no audible wheeze Cardiovascular: S1-S2 regular in rate and rhythm Gastrointestinal: No pain Extremities: No swelling of ankles BALE PILER: Alert awake oriented x3 motor sensory intact Skin: Normal turgor [facility] Medical History Ventral hernia Surgical History [place] teeth extracted History of appendectomy H/O right inguinal hernia repair Social History Housing: House Patient Tobacco Use Status: Former Tobacco user e-Cigarette/Vaping Use: Never Used service: No Current occupational status: employed and retired Cognitive needs: No Hearing needs: No Vision needs: Yes Questionnaire PHQ-9 Over the last 2 weeks, how often have you been bothered by any of the following problems? 1. Little interest or pleasure in doing things: not at all 2. Feeling down, depressed, or hopeless: not at all 3. Trouble falling or staying asleep, or sleeping too much: not at all 4. Feeling tired or having little energy: not at all 5. Poor appetite or overeating: not at all 6. Feeling bad about yourself - or that you are a failure or have let yourself or your family down: not at all 7. Trouble concentrating on things, such as reading the newspaper or watching television: not at all 8. Moving or speaking so slowly that other people could have noticed. Or the opposite - being so fidgety or restless that you have been moving around a lot more than usual: not at all 9. Thoughts that you would be better off or of hurting yourself in some way : not at all Total score: 0 Depression Screening Interpretation: Negative Depression Screening Done: Yes [id number] - PHQ-9 Billing: Yes Source: Developed by Drs. Hank Jasmine, Tacho Rosas and colleagues, with an educational ebonie from [employer]. Thrive Questionnaire Date Thrive assessed: 03/28/25 I am a: Patient What is your living situation today?: I have a steady place to live Within the past 12 months, did the food you bought not last and you didn't have the money to get more?: Never true Within the past 12 months, did you worry whether your food would run out before you got money to buy more?: Never true Do you have trouble paying for medicines?: No Do you have trouble getting transportation to medical appointments?: No Do you have trouble paying your heating and electricity bill?: No Do you have trouble taking care of your child, family member or friend?: No Do you have trouble with day-to-day activities such as bathing, preparing meals, shopping, managing finances, etc.?: No Are you currently unemployed and looking for a job?: No Are you interested in more education?: No Please select the resources that you would like help with: None Currently or been in a relationship where the following occur: No concerns reported THRIVE Score: 0 MIRNA-7 AMB Questionnaire MIRNA-7 Date MIRNA - 7 assessed: 03/28/25 Feeling nervous, anxious, or on edge: 0 = Not at all Not being able to stop or control worryin = Not at all Worrying too much about different things: 0 = Not at all Trouble relaxin = Not at all Being so restless that it is hard to sit still: 0 = Not at all Becoming easily annoyed or irritable: 0 = Not at all Feeling afraid as if something awful might happen: 0 = Not at all Total MIRNA-7 score (0-4 normal; 5-9 mild; 10-14 moderate; 15-21 severe): 0 Source: Developed by Drs. Hank Jasmine, Tacho Rosas and colleagues, with an educational ebonie from [employer]. MIRNA-7 Assessment Billing MIRNA-7 Assessment Tool: MIRNA-7 Assessment 85908 Physical exam (Primary Care) Vital Signs: Last Vital Signs Temp 97.6 F 03/28/25 13:22 Pulse 56 03/28/25 13:22 Resp 14 03/28/25 13:22 BP 138/68 03/28/25 13:22 Pulse Ox 99 03/28/25 13:22 Oxygen Delivery Method Room Air 03/28/25 13:22 BMI result Body Mass Index 29.7 Tobacco/Smoking Status: Tobacco use Status Tobacco use date assessed 03/28/25 03/28/25 13:26 Patient Tobacco Use Status Former Tobacco user 03/28/25 13:21 e-Cigarette/Vaping Use Never Used 03/28/25 13:21 PHQ-9: PHQ-9 Score PHQ-9: Total score 0 03/28/25 13:28 Depression Screening Interpretation: Negative Thrive Assessment: Date of Thrive Assessment Date Thrive assessed 03/28/25 03/28/25 13:28 Currently or been in a relationship where the following occur: No concerns reported Coding Level of Care Code Est Pt Level 4 (14631) Complex EM visit Add On G2211 Diagnoses Hypertension, essential I10 Impaired glucose metabolism R73.09 Class 1 obesity due to excess calories with serious comorbidity and body mass index (BMI) of 30.0 to 30.9 in adult E66.09; Z68.30 Body mass index: BMI 30.0-30.9 Obesity classification: adult class 1 (BMI 30 - 34.9) Serious obesity comorbidity presence: with serious comorbidity Elevated lipase R74.8 Idiopathic chronic pancreatitis K86.1 Chronicity: chronic Pancreatitis type: idiopathic Anxiety, generalized F41.1 Environmental allergies Z91.09 Additional Codes MIRNA-7 Assessment Billing - MIRNA-7 Assessment Tool: MIRNA-7 Assessment [id number] ([id number]) PHQ-9 - 65520 - PHQ-9 Billing: Yes ([id number]) Assessment & Plan Assessment & Plan (1) Hypertension, essential: Code(s): I10 - Essential (primary) hypertension Category: Medical (2) Impaired glucose metabolism: Code(s): R73.09 - Other abnormal glucose Category: Medical (3) Obesity due to excess calories: Code(s): E66.09 - Other obesity due to excess calories Category: Medical Qualifiers: Body mass index: BMI 30.0-30.9 Obesity classification: adult class 1 (BMI 30 - 34.9) Serious obesity comorbidity presence: with serious comorbidity Qualified Code(s): E66.09 - Other obesity due to excess calories; Z68.30 - Body mass index [BMI] 30.0-30.9, adult (4) Elevated lipase: Code(s): R74.8 - Abnormal levels of other serum enzymes Category: Medical (5) Pancreatitis: Code(s): K85.90 - Acute pancreatitis without necrosis or infection, unspecified Category: Medical Qualifiers: Chronicity: chronic Pancreatitis type: idiopathic Qualified Code(s): K86.1 - Other chronic pancreatitis (6) Anxiety, generalized: Code(s): F41.1 - Generalized anxiety disorder Category: Medical (7) Environmental allergies: Code(s): Z91.09 - Other allergy status, other than to drugs and biological substances Category: Medical Plan History - The patient is a 69-year-old male presenting with issues of blood pressure monitoring and management of anxiety. - He suspects that the device's batteries may be low as a reading this morning was 128 (systolic over indeterminate) and another of 126 mmHg. He is monitoring blood pressure at home he brought his machine today but that did not give us accurate number - History of anxiety with the patient describing feelings of being anxious and nervous, stating it may be familial, tracing back to his mother. - He noted that he requires medication for relaxation because he has felt consistently anxious. Allergies stable -patient is prediabetic Medical History: - hypertension - History of anxiety issues. - Prediabetes has been identified in patient labs. - chronic pancreatitis asymptomatic Diagnostic Results: - Labs: Done in November of this year reviewed Problem List - Essential Hypertension - Anxiety Disorder - Prediabetes - chronic pancreatitis - overweight - allergies Patient Instructions - Monitor blood pressure regularly and check the batteries of the device. - Start with a half tablet of prescribed anxiety medication for a week, then transition to a full tablet every morning. Lexapro 10 mg - Follow up in three weeks to assess the effectiveness of the anxiety medication. - Schedule next appointment in four months and ensure a blood test is completed before this appointment. - diet-controlled encouraged Orders: Orders Lipid Panel Today E66.09 - Other obesity due to excess calories, I10 - Essential (primary) hypertension, R73.09 - Other abnormal glucose, R74.8 - A bnormal levels of other serum enzymes, Z68.30 - Body mass index [BMI] 30.0-30.9, adult Lipase Today K85.90 - Acute pancreatitis without necrosis or infection, unspecified Hemoglobin A1c Today E66.09 - Other obesity due to excess calories, I10 - Essential (primary) hypertension, R73.09 - Other abnormal glucose, R74.8 - Abnormal levels of other serum enzymes, Z68.30 - Body mass index [BMI] 30.0- 30.9, adult Complete Blood Count Auto Diff Today E66.09 - Other obesity due to excess calories, I10 - Essential (primary) hypertension, R73.09 - Other abnormal glucose, R74.8 - Abnormal levels of other serum enzymes, Z68.30 - Body mass index [BMI] 30.0-30.9, adult Comprehensive [place]. Panel Fast Today E66.09 - Other obesity due to excess calories, I10 - Essential (primary) hypertension, R73.09 - Other abnormal glucose, R74.8 - Abnormal levels of other serum enzymes, Z68.30 - Body mass index [BMI] 30.0-30.9, adult Amylase Today K85.90 - Acute pancreatitis without necrosis or infection, unspecified
[2025-03-28 13:22] VITALS: BP 138/68; PULSE 56; RESP 14; TEMP 36.4; O2SAT 99; BMI 29.7
== END 2025-03-28 13:38 | disposition home or self-care (01) ==
LOC: HO.HMCC 13:18
PROVIDERS: PCP Internal Medicine; Visit Provider Internal Medicine
DX: I10 Essential (primary) hypertension (principal); K86.1 Other chronic pancreatitis; Z68.30 Body mass index [BMI] 30.0-30.9, adult; E66.09 Other obesity due to excess calories; R73.09 Other abnormal glucose; R74.8 Abnormal levels of other serum enzymes; F41.1 Generalized anxiety disorder; Z91.09 Other allergy status, other than to drugs and biological substances

== ENCOUNTER → 2025-03-28 13:17 | Outpatient (BNVA) | payer MEDICARE, SELFPAY | PROVIDERS: PCP Internal Medicine; Visit Provider Internal Medicine | DX: I10 Essential (primary) hypertension (principal); R73.09 Other abnormal glucose; E66.09 Other obesity due to excess calories; Z68.30 Body mass index [BMI] 30.0-30.9, adult; R74.8 Abnormal levels of other serum enzymes; K86.1 Other chronic pancreatitis; F41.1 Generalized anxiety disorder; Z91.09 Other allergy status, other than to drugs and biological substances; Z71.3 Dietary counseling and surveillance | CPT/HCPCS: 96127; 99212 ==

== ENCOUNTER 2025-04-24 08:25 | Outpatient (REF) | payer MEDICARE, SELFPAY ==
[2025-04-24 10:47] LABS: MANUAL DIFF FLAG NO
[2025-04-24 10:58] LABS: Hematocrit 40.4 % (42.0-52.0); Hemoglobin 14.6 g/dl (14.0-18.0); Imm Gran Abs Auto 0.03 X10*3/uL (0.00-0.03); Imm Gran Pct Auto 0.5 % (0.0-0.4); Lymphocytes Absolute Auto 1.7 X10*3/uL (1.2-4.9); Mean Corpuscular HGB Conc 36.1 g/dl (31.0-36.0); Mean Corpuscular Hemoglobin 29.1 pg (27.0-33.0); Mean Corpuscular Volume 80.6 fL (80.0-98.0); NRBC Abs Auto 0.000 X10*3/uL (0.0-0.012); NRBC Pct Auto 0.0 /100WBC (0.0-0.2); Platelet Count 198 X10*3/uL (160-400); Red Blood Count 5.01 X10*6/uL (4.60-5.80); White Blood Count 6.3 X10*3/uL (4.8-10.8)
[2025-04-24 11:02] LABS: Hemoglobin A1C 135.4805 umol/L; Total Hemoglobin (HGBA1C) 3819.2287 umol/L
[2025-04-24 11:57] LABS: Alanine Aminotransferase 17 U/L (0-40); Albumin Level 4.6 g/dL (3.5-5.0); Alkaline Phosphatase 55 U/L (39-117); Amylase 378 U/L (28-100); Anion Gap 12 (12-20); Aspartate Amino Transferase 29 U/L (5-37); Blood Urea Nitrogen 19 mg/dL (9-16); Calcium 9.2 mg/dL (8.4-10.2); Carbon Dioxide 27 mmol/L (22-29); Chloride 105 mmol/L (96-108); Cholesterol 165 mg/dL (<200); Estimated Glomerular Filt Rate > 60; HDL Cholesterol 35 mg/dL (>40); Potassium 3.6 mmol/L (3.3-5.1); Sodium 140 mmol/L (135-145); Total Protein 7.5 g/dL (6.5-8.0); Triglycerides 127 mg/dL (<150)
[2025-04-24 13:36] LABS: Lipase 691 U/L (8-78)
== END 2025-04-24 08:26 | disposition home or self-care (01) ==
LOC: HO.HMGCLDS 08:25
PROVIDERS: PCP Internal Medicine; Visit Provider Internal Medicine
DX: I10 Essential (primary) hypertension (principal); E66.09 Other obesity due to excess calories; R74.8 Abnormal levels of other serum enzymes; K85.90 Acute pancreatitis without necrosis or infection, unspecified; Z68.30 Body mass index [BMI] 30.0-30.9, adult
CPT/HCPCS: 36415; 80053; 80061; 82150; 83036; 83690; 85025

== ENCOUNTER 2025-04-27 08:22 | Outpatient (AMB) | payer MEDICARE, SELFPAY ==
--- NOTE | 2025-04-27 09:28 | MHC.PC.OV ---
Intake Visit Reasons: f/up Allergies Penicillins (PENICILLINS) Allergy (Unknown, Verified 03/28/25 13:22) Hives Medication List - Last Reconciled 04/27/25 by More Laureano MD atenolol 25 mg PO DAILY cetirizine (Zyrtec) 10 mg PO DAILY PRN escitalopram oxalate (Lexapro) 10 mg PO DAILY losartan-hydrochlorothiazide 50-12.5 mg 1 tab PO BID 90 days Tobacco use date assessed: 03/28/25 Dental Screening Dental Screen Date: 03/28/25 HPI f/up HPI Details History - The patient is a 69-year-old male presenting with anxiety symptoms. - Reported the initiation of a medication regimen involving Escitalopram (Lexapro) approximately one month ago. - Experienced a mild improvement, specifically feeling somewhat calmer and less anxious. - No adverse effects have been noted from the medication. Medications: - Escitalopram 10 mg once daily taken at night for anxiety. Problem List - Anxiety Patient Instructions - Start taking the new prescribed dosage of 20 mg Escitalopram daily. - Continue the medication as directed until the next appointment. - Contact the office immediately if any problems or concerns arise before the next scheduled visit. - attend a follow-up appointment for July. Review of Systems - General: No fever no chills - Neurological: No headaches no dizziness - Ear nose throat: No sore throat no hearing difficulty no ear pain - Cardiovascular: No syncope, no chest pain, no palpitations - Gastrointestinal: No nausea vomiting or diarrhea PFSH Medical History Ventral hernia Surgical History [place] teeth extracted History of appendectomy H/O right inguinal hernia repair Social History Housing: House Patient Tobacco Use Status: Former Tobacco user e-Cigarette/Vaping Use: Never Used service: No Current occupational status: employed and retired Cognitive needs: No Hearing needs: No Vision needs: Yes Questionnaire Thrive Questionnaire Date Thrive assessed: 03/28/25 MIRNA-7 AMB Questionnaire MIRNA-7 Date MIRNA - 7 assessed: 03/28/25 Source: Developed by Drs. Hank Jasmine, Alyson BTacho Fournier and colleagues, with an educational ebonie from [employer]. Physical exam (Primary Care) Tobacco/Smoking Status: Tobacco use Status Tobacco use date assessed 03/28/25 04/27/25 09:28 Patient Tobacco Use Status Former Tobacco user 04/27/25 09:28 e-Cigarette/Vaping Use Never Used 04/27/25 09:28 Thrive Assessment: Date of Thrive Assessment Date Thrive assessed 03/28/25 04/27/25 09:28 Telehealth Telehealth Telehealth Platform: [employer] Location of provider rendering services: practice address Location of patient: address on file Patient Identification confirmed using: Name, : Yes Telehealth method: voice only Patient verbally consented to treatment: Yes Patient verbally consented to billing insurance company: Yes Patient informed of any privacy concerns related to visit: Yes Minutes spent on Phone/Video with Pt.: 13 Coding Level of Care Code Tele Est Pt Level 3 (24905) Diagnoses Anxiety, generalized F41.1 Assessment & Plan Assessment & Plan (1) Anxiety, generalized: Code(s): F41.1 - Generalized anxiety disorder Category: Medical Plan History - The patient is a 32-year-old female presenting for a refill of lorazepam. still going thru bereavement process after passing of her mother recently - The medication was initially taken twice daily but was adjusted to mainly nighttime use. - The reason for nighttime use was due to excessive daytime somnolence when taken twice daily; nighttime use primarily aids in sleeping through mind racing and difficulties staying asleep. - The patient reports improvement in sleep quality with nighttime use, although she does not use it every night. - Occasional use is when unable to fall asleep, especially when anticipating waking up for work. - The patient denies experiencing hangover effects or impaired daytime functioning from the medication. Medications: - Lorazepam 1 mg: Primarily used at night to aid in sleep and reduce nocturnal awakenings. Social History: - Employment: The patient mentioned having work commitments, indicating employment. - Sleep Patterns: The patient reports occasional difficulty sleeping, particularly struggling with mind racing at night. Problem List - Insomnia - Bereavement Patient Instructions - Continue taking lorazepam primarily at night as needed to assist with sleep. 60 tabs sent .5 mg - Be cautious not to rely habitually on the medication. - Follow up at the scheduled July appointment for a physical exam. Medications: Changed From escitalopram oxalate (Lexapro) Take half a tablet for a week and then full tablet 10 mg PO DAILY 30 tabs 0RF To escitalopram oxalate 20 mg PO DAILY 90 tabs 0RF 90 days
== END 2025-04-27 09:36 | disposition home or self-care (01) ==
LOC: HO.HMCC 08:22
PROVIDERS: PCP Internal Medicine; Visit Provider Internal Medicine
DX: F41.1 Generalized anxiety disorder (principal)

== ENCOUNTER 2025-08-01 13:14 | Outpatient (REF) | payer MEDICARE, SELFPAY ==
[2025-08-01 16:15] LABS: MANUAL DIFF FLAG NO
[2025-08-01 16:33] LABS: Hematocrit 40.6 % (42.0-52.0); Hemoglobin 14.4 g/dl (14.0-18.0); Imm Gran Abs Auto 0.04 X10*3/uL (0.00-0.03); Imm Gran Pct Auto 0.5 % (0.0-0.4); Lymphocytes Absolute Auto 1.8 X10*3/uL (1.2-4.9); Mean Corpuscular HGB Conc 35.5 g/dl (31.0-36.0); Mean Corpuscular Hemoglobin 28.9 pg (27.0-33.0); Mean Corpuscular Volume 81.5 fL (80.0-98.0); NRBC Abs Auto 0.000 X10*3/uL (0.0-0.012); NRBC Pct Auto 0.0 /100WBC (0.0-0.2); Platelet Count 215 X10*3/uL (160-400); Red Blood Count 4.98 X10*6/uL (4.60-5.80); White Blood Count 7.9 X10*3/uL (4.8-10.8)
[2025-08-01 16:53] LABS: Alanine Aminotransferase 20 U/L (0-40); Albumin Level 4.8 g/dL (3.5-5.0); Alkaline Phosphatase 60 U/L (39-117); Amylase 169 U/L (28-100); Anion Gap 12 (12-20); Aspartate Amino Transferase 24 U/L (5-37); Blood Urea Nitrogen 18 mg/dL (9-16); Calcium 9.6 mg/dL (8.4-10.2); Carbon Dioxide 28 mmol/L (22-29); Chloride 104 mmol/L (96-108); Estimated Glomerular Filt Rate > 60; Lipase 116 U/L (8-78); Potassium 3.7 mmol/L (3.3-5.1); Sodium 140 mmol/L (135-145); Total Protein 7.9 g/dL (6.5-8.0)
== END 2025-08-01 13:15 | disposition home or self-care (01) ==
LOC: HO.HMGCLDS 13:14
PROVIDERS: PCP Internal Medicine; Visit Provider Internal Medicine
DX: I10 Essential (primary) hypertension (principal); K58.8 Other irritable bowel syndrome; R74.8 Abnormal levels of other serum enzymes; F41.1 Generalized anxiety disorder; R73.09 Other abnormal glucose; K86.1 Other chronic pancreatitis; Z91.09 Other allergy status, other than to drugs and biological substances
CPT/HCPCS: 36415; 80053; 82150; 83036; 83690; 85025; 96127; 99212

== ENCOUNTER 2025-08-01 13:14 | Outpatient (AMB) | payer MEDICARE, SELFPAY ==
[2025-08-01 13:21] VITALS: BP 136/74; PULSE 57; O2SAT 97; BMI 29.3
--- NOTE | 2025-08-01 13:21 | A.OFFPC_ITS ---
Vital Signs 08/01/25 13:21 Height 5 ft 5 in Weight 176 lb BMI 29.3 BP 136/74 Blood Pressure Location Lt brachial Position Sitting Pulse 57 Pulse Source Pulse Oximeter Pulse Oximetry (%) 97 Intake Visit Reasons: 4m f/u Allergies Penicillins (PENICILLINS) Allergy (Unknown, Verified 08/01/25 13:25) Hives Medication List - Last Reconciled 08/01/25 by More Laureano MD atenolol 25 mg PO DAILY cetirizine (Zyrtec) 10 mg PO DAILY PRN escitalopram oxalate 20 mg PO DAILY 90 days losartan-hydrochlorothiazide 50-12.5 mg 1 tab PO BID 90 days Tobacco use date assessed: 03/28/25 Fall risk assessment: No Falls in past year Last assessed Fall Risk: 08/01/25 Dental Screening Dental Screen Date: 03/28/25 HPI 4m f/u HPI Details History The patient is a 69-year-old male presenting with elevated pancreatic enzymes. Elevated pancreatic enzymes: - Noted high pancreatic enzymes in recen t test results with further increase from three months prior. - [employer] evaluation did not determine a specific cause; no pain or other typical pancreatic symptoms reported. - Last imaging studies including MRI and CT scan of the abdomen performed in May, results were unremarkable. Generalized Anxiety Disorder: - Longstanding anxious and nervous perso nality since childhood; improved notably with increased escitalopram dose from 10 mg to 20 mg. - Anxiety linked to symptoms of irritabl e bowel syndrome, including bloating and altered bowel habits, which have improved with medication. Irritable Bowel Syndrome: - Chronic history of bloating and irregu lar bowel movements, improved with current escitalopram therapy. Hypertension: - Blood pressure monitored at home, fluc tuates between 117/xx to 130/xx; no associated symptoms reported. Medical History: - Generalized Anxiety Disorder - Irritable Bowel Syndrome - Hypertension - Prediabetes - Elevated Pancreatic Enzymes - Scoliosis Social History: - Recently retired - Actively engages in physical activitie s; recent summer spent working outside, including home improvement tasks. Problem List - Elevated Pancreatic Enzymes - Generalized Anxiety Disorder - Irritable Bowel Syndrome - Essential Hypertension - Prediabetes [facility] - Referral history: [employer] Supriya Giang Plan - Repeat pancreatic enzyme levels for tr end analysis to assess for further increase, determining need for additional diagnostic workup. Last set of pancreatic enzymes were very high compared to previous - Continue current dosage of escitalopra m for management of Generalized Anxiety Disorder; review effectiveness and tolerability. - Monitor blood pressure, continue ateno lol; and losartan hydrochlorothiazide 50-12.5 mg b.i.d. - Advise flu and shingles vaccination du e per schedule; discuss availability and administration. - Consider further gastroenterology foll ow-up if pancreatic enzyme trend continues upward. Follow-up in 4 months Review of Systems General: No fever no chills neurological: No headaches no dizziness ear nose throat: No sore throat no hearing difficulty no ear pain cardiovascular: No syncope, no chest pain, no palpitations gastrointestinal: No nausea vomiting or diarrhea endocrine: No polyuria polydipsia no heat intolerance genitourinary: No dysuria skin: No new complaints Physical Exam general: No acute distress HEENT: No acute findings neck: Supple respiratory system: Able to talk in full sentences, no audible wheeze no stridor cardiovascular: S1-S2 RRR, heart rate 57, a little lower than normal gastrointestinal: No pain, no nausea, no vomiting, no abdominal pain extremities: No new findings 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 1. Little interest or pleasure in doing things: not at all 2. Feeling down, depressed, or hopeless: not at all 3. Trouble falling or staying asleep, or sleeping too much: not at all 4. Feeling tired or having little energy: not at all 5. Poor appetite or overeating: not at all 6. Feeling bad about yourself - or that you are a failure or have let yourself or your family down: not at all 7. Trouble concentrating on things, such as reading the newspaper or watching television: not at all 8. Moving or speaking so slowly that other people could have noticed. Or the opposite - being so fidgety or restless that you have been moving around a lot more than usual: not at all 9. Thoughts that you would be better off or of hurting yourself in some way: not at all Total score: 0 Depression Screening Interpretation: Negative Depression Screening Done: Yes 65531 - PHQ-9 Billing: Yes Source: Developed by Drs. Hank Jasmine, Alyson Choi, Tacho Bergman and colleagues, with an educational ebonie from [employer] Thrive Questionnaire Date Thrive assessed: 12/07/24 I am a: Patient What is your living situation today?: I have a steady place to live Within the past 12 months, did the food you bought not last and you didn't have the money to get more?: Never true Within the past 12 months, did you worry whether your food would run out before you got money to buy more?: Never true Do you have trouble paying for medicines?: No Do you have trouble getting transportation to medical appointments?: No Do you have trouble paying your heating and electricity bill?: No Do you have trouble taking care of your child, family member or friend?: No Do you have trouble with day-to-day activities such as bathing, preparing meals, shopping, managing finances, etc.?: No Are you currently unemployed and looking for a job?: No Are you interested in more education?: No Please select the resources that you would like help with: None Currently or been in a relationship where the following occur: No concerns reported THRIVE Score: 0 AUDIT C Alcohol Use Questionnaire (AUDIT-C) 1. How often do you have a drink containing alcohol?: Monthly or less 2. How many drinks containing alcohol do you have on a typical day when you are drinking?: 1 or 2 3. How often do you have six or more drinks on one occasion?: Never Total Score: 1 MIRNA-7 AMB Questionnaire MIRNA-7 Date MIRNA - 7 assessed: 03/28/25 Feeling nervous, anxious, or on edge: 0 = Not at all Not being able to stop or control worryin = Not at all Worrying too much about different things: 0 = Not at all Trouble relaxin = Not at all Being so restless that it is hard to sit still: 0 = Not at all Becoming easily annoyed or irritable: 0 = Not at all Feeling afraid as if something awful might happen: 0 = Not at all Total MIRNA-7 score (0-4 normal; 5-9 mild; 10-14 moderate; 15-21 severe): 0 Source: Developed by Drs. Hank Jasmine, Alyson Choi, Tacho Bergman and colleagues, with an educational ebonie from [employer] Physical exam (Primary Care) Vital Signs: Last Vital Signs Pulse 57 08/01/25 13:21 BP 136/74 08/01/25 13:21 Pulse Ox 97 08/01/25 13:21 BMI result Body Mass Index 29.3 Tobacco/Smoking Status: Tobacco use Status Tobacco use date assessed 03/28/25 08/01/25 13:21 Patient Tobacco Use Status Former Tobacco user 08/01/25 13:21 e-Cigarette/Vaping Use Never Used 08/01/25 13:21 PHQ-9: PHQ-9 Score PHQ-9: Total score 0 08/01/25 13:44 Depression Screening Interpretation: Negative Thrive Assessment: Date of Thrive Assessment Date Thrive assessed 12/07/24 08/01/25 13:21 Currently or been in a relationship where the following occur: No concerns reported Coding Level of Care Code Est Pt Level 4 (60052) Complex EM visit Add On G2211 Diagnoses Hypertension, essential I10 Impaired glucose metabolism R73.09 Elevated lipase R74.8 Elevated pancreatic enzyme R74.8 Other irritable bowel syndrome K58.8 Irritable bowel syndrome type: other Idiopathic chronic pancreatitis K86.1 Chronicity: chronic Pancreatitis type: idiopathic Anxiety, generalized F41.1 Environmental allergies Z91.09 Additional Codes PHQ-9 - 02066 - PHQ-9 Billing: Yes ([id number]) Assessment & Plan Assessment & Plan (1) Hypertension, essential: Code(s): I10 - Essential (primary) hypertension Category: Medical (2) Impaired glucose metabolism: Code(s): R73.09 - Other abnormal glucose Category: Medical (3) Elevated lipase: Code(s): R74.8 - Abnormal levels of other serum enzymes Category: Medical (4) Elevated pancreatic enzyme: Code(s): R74.8 - Abnormal levels of other serum enzymes Category: Medical (5) Irritable bowel syndrome: Code(s): K58.9 - Irritable bowel syndrome, unspecified Category: Medical Qualifiers: Irritable bowel syndrome type: other Qualified Code(s): K58.8 - Other irritable bowel syndrome (6) Pancreatitis: Code(s): K85.90 - Acute pancreatitis without necrosis or infection, unspecified Category: Medical Qualifiers: Chronicity: chronic Pancreatitis type: idiopathic Qualified Code(s): K86.1 - Other chronic pancreatitis (7) Anxiety, generalized: Code(s): F41.1 - Generalized anxiety disorder Category: Medical (8) Environmental allergies: Code(s): Z91.09 - Other allergy status, other than to drugs and biological substances Category: Medical Plan History The patient is a 69-year-old male presenting with elevated pancreatic enzymes. Elevated pancreatic enzymes: - Noted high pancreatic enzymes in recent test results with further increase from three months prior. - [employer]ocom[employer] evaluation did not determine a specific cause; no pain or other typical pancreatic symptoms reported. - Last imaging studies including MRI and CT scan of the abdomen performed in May, results were unremarkable. Generalized Anxiety Disorder: - Longstanding anxious and nervous personality since childhood; improved notably with increased escitalopram dose from 10 mg to 20 mg. - Anxiety linked to symptoms of irritable bowel syndrome, including bloating and altered bowel habits, which have improved with medication. Irritable Bowel Syndrome: - Chronic history of bloating and irregular bowel movements, improved with current escitalopram therapy. Hypertension: - Blood pressure monitored at home, fluctuates between 117/xx to 130/xx; no associated symptoms reported. Medical History: - Generalized Anxiety Disorder - Irritable Bowel Syndrome - Hypertension - Prediabetes - Elevated Pancreatic Enzymes - Scoliosis Social History: - Recently retired - Actively engages in physical activities; recent summer spent working outside, including home improvement tasks. Problem List - Elevated Pancreatic Enzymes - Generalized Anxiety Disorder - Irritable Bowel Syndrome - Essential Hypertension - Prediabetes [facility] - Referral history: Locom[employer] Dr. Giang Plan - Repeat pancreatic enzyme levels for trend analysis to assess for further increase, determining need for additional diagnostic workup. Last set of pancreatic enzymes were very high compared to previous - Continue current dosage of escitalopram for management of Generalized Anxiety Disorder; review effectiveness and tolerability. - Monitor blood pressure, continue atenolol; and losartan hydrochlorothiazide 50-12.5 mg b.i.d. - Advise flu and shingles vaccination due per schedule; discuss availability and administration. - Consider further gastroenterology follow-up if pancreatic enzyme trend continues upward. Follow-up in 4 months Orders: Orders Complete Blood Count Auto Diff Today I10 - Essential (primary) hypertension, K58.8 - Other irritable bowel syndrome, R73.09 - Other abnormal glucose, R74.8 - Abnormal levels of other serum enzymes Comprehensive Met. Panel Today I10 - Essential (primary) hypertension, K58.8 - Other irritable bowel syndrome, R73.09 - Other abnormal glucose, R74.8 - Abnormal levels of other serum enzymes Amylase Today I10 - Essential (primary) hypertension, K58.8 - Other irritable bowel syndrome, R73.09 - Other abnormal glucose, R74.8 - Abnormal levels of other serum enzymes Lipase Today I10 - Essential (primary) hypertension, K58.8 - Other irritable bowel syndrome, R73.09 - Other abnormal glucose, R74.8 - Abnormal levels of other serum enzymes Hemoglobin A1c Today I10 - Essential (primary) hypertension, K58.8 - Other irritable bowel syndrome, R73.09 - Other abnormal glucose, R74.8 - Abnormal levels of other serum enzymes
== END 2025-08-01 14:44 | disposition home or self-care (01) ==
LOC: HO.HMCC 13:14
PROVIDERS: PCP Internal Medicine; Visit Provider Internal Medicine
DX: I10 Essential (primary) hypertension (principal); R73.09 Other abnormal glucose; R74.8 Abnormal levels of other serum enzymes; K58.8 Other irritable bowel syndrome; K86.1 Other chronic pancreatitis; F41.1 Generalized anxiety disorder; Z91.09 Other allergy status, other than to drugs and biological substances